=== PATIENT | male | born 1935 | race Caucasian/White ===

== ENCOUNTER 2019-01-22 00:04 | Inpatient (IN) | payer MEDICARE, MEDICAID ==
[~2019-01-22] VITALS: Ht 172.7 cm; Wt 112.3 kg
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
--- NOTE | 2019-01-22 00:25 | EKG ---
[address] [address] Test Date: 2019-01-22 Test Time: 00:24:01 Pat Name: SHERMAN MARTINEZ Department: Room: Gender: M Bistro Attendant: : 1935 Requested By: RAZIA BAKER Order Number: [id number] Reading MD: Measurements Intervals [place] Rate: 89 P: -149 MD: 182 QRS: -49 QRSD: 132 T: 21 QT: 396 QTc: 489 Interpretive Statements SINUS RHYTHM ABNORMAL LEFT AXIS DEVIATION LEFT ANTERIOR FASCICULAR BLOCK RIGHT BUNDLE BRANCH BLOCK BIFASCICULAR BLOCK QRS(T) CONTOUR ABNORMALITY CONSIDER ANTEROSEPTAL MYOCARDIAL DAMAGE ABNORMAL ECG RI6.01 No previous ECG available for comparison
[2019-01-22] MEDS ORDERED: IV RINGERS SOLUTION,LACTATED 1,000 ML IV SCH (00:30)
[2019-01-22 00:36] LABS: BASO # 0.1 x10^3/uL (0.0-0.2); BASO % 1 % (0-3); EOS # 0.4 x10^3/uL (0.0-0.7); EOS % 3 % (0-3); HEMATOCRIT 37.1 % (39.0-53.0); HEMOGLOBIN 12.5 g/dL (13.0-17.5); LYMPH # 3.9 x10^3/uL (1.0-4.8); LYMPH % 29 % (24-48); MEAN CORPUSCULAR HEMOGLOBIN 31 pg (25-35); MEAN CORPUSCULAR HGB CONC 34 g/dL (31-37); MEAN CORPUSCULAR VOLUME 92 fL (79-100); MONO # 1.1 x10^3/uL (0.0-1.1); MONO % 8 % (0-9); NEUT # 7.9 x10^3uL (1.8-7.7); NEUT % 59 % (31-73); PLATELET COUNT 359 x10^3/uL (140-400); RED BLOOD COUNT 4.02 x10^6/uL (4.30-5.70); WHITE BLOOD COUNT 13.3 x10^3/uL (4.0-11.0)
[2019-01-22 00:42] LABS: CALCIUM 8.7 mg/dL (8.5-10.1); CREATININE 1.4 mg/dL (0.7-1.3); GFR 48.4
[2019-01-22 00:54] LABS: ALBUMIN 3.5 g/dL (3.4-5.0); DIRECT BILIRUBIN 0.1 mg/dL (0.0-0.2); MAGNESIUM 1.8 mg/dL (1.8-2.4); TOTAL BILIRUBIN 0.3 mg/dL (0.2-1.0); TOTAL PROTEIN 7.8 g/dL (6.4-8.2)
[2019-01-22 01:32] LABS: SEDIMENTATION RATE 50 (0-15)
--- NOTE | 2019-01-22 02:03 | RAD ---
CT HEAD AND CERVICAL SPINE WO Date: 01/22/2019 12:15 AM Clinical Indication: Altered mental status, confusion, neck stiffness Comparison: None. Technique: 5 mm axial tomographic images were obtained of the head without contrast. These were viewed on brain and bone windows. Noncontrast CT of the cervical spine was performed. Sagittal and coronal reformats were performed and evaluated. One or more of the following dose reduction techniques were utilized: Automated exposure control (AEC), Adjustment of mA and/or kV according to patient size, Use of iterative reconstruction technique such as ASiR, CT scan done according to ALARA and image gently/image wisely HEAD FINDINGS: Motion artifact degrades image quality. Mild generalized cerebral and cerebellar volume loss. Mild nonspecific periventricular hypoattenuation, most commonly seen with chronic small vessel ischemic disease. No intra- or extra-axial mass or fluid collection. No acute hemorrhage. The ventricles are normal in size, shape, and morphology. The huang-white matter junction is normal. The basilar cisterns are patent. Partial opacification of the maxillary, ethmoid, and sphenoid sinuses. The visualized portions of the orbits and globes are normal. The mastoid air cells are clear. No aggressive osseous lesion or fracture. CERVICAL SPINE FINDINGS: The cervical spine is normally aligned. No acute fracture. No aggressive lytic or blastic osseous lesions. Moderate multilevel degenerative disc space height loss. Multilevel mild spinal canal stenosis secondary to disc protrusions and marginal osteophytes. Multilevel mild and moderate neuroforaminal narrowing secondary to uncovertebral arthrosis. Multilevel mild and moderate facet arthrosis. The thyroid gland is normal. No cervical lymphadenopathy. Bilateral carotid atherosclerosis. The visualized aerodigestive tract is normal. The visualized portions of the lungs are clear. IMPRESSION: 1. No acute intracranial process. 2. No acute cervical spine fracture. Electronically signed by: Flakito Church MD (01/22/2019 2:00 AM) [facility]
[2019-01-22 03:05] LABS: BARBITURATES NEG (NEG); BENZODIAZEPINES NEG (NEG); CANNABINOIDS NEG (NEG); COCAINE NEG (NEG); METHADONE NEG (NEG); OPIATES NEG (NEG); PHENCYCLIDINE NEG (NEG)
[2019-01-22 03:17] LABS: BACTERIA,URINE 0 /HPF (0-FEW); BILIRUBIN,URINE NEG (NEG); CLARITY,URINE CLEAR; COLOR,URINE YELLOW; GLUCOSE,URINE 100 mg/dL (NEG); NITRITE,URINE NEG (NEG); RBC,URINE 0 /HPF (0-2); SQUAMOUS EPITHELIAL CELL,UR OCC /LPF; UROBILINOGEN,URINE 0.2 mg/dL (0.2 mg/dL); WBC,URINE OCC /HPF (0-4)
[2019-01-22 03:30] LABS: AMPHETAMINE/METHAMPHETAMINE NEG (NEG)
[2019-01-22] MEDS ORDERED: diphenhydrAMINE HCL 25 MG CAPSULE PO ONE (03:45)
[2019-01-22] MEDS ORDERED: LORazepam 1 MG TABLET PO ONE (03:45)
[2019-01-22] MEDS ORDERED: OLANZapine 2.5 MG TABLET PO ONE (03:45)
[2019-01-22] MEDS ORDERED: cefTRIAXone SODIUM 1 GM VIAL ONE (03:46)
[2019-01-22] MEDS ORDERED: IV NORMAL SALINE 50ML 50 ML ONE (03:46)
[2019-01-22] MEDS ORDERED: ONDANSETRON PF 4 MG/2 ML VIAL. IV PRN ×2 (04:00→12:15)
--- NOTE | 2019-01-22 04:49 | RAD ---
CHEST AP ONLY INDICATION: Dyspnea, congestion, COPD. COMPARISON STUDY: None. FINDINGS: Lungs: Normal lung volume. Mild perihilar and basilar opacities. . Pleura: No pleural effusion or pneumothorax. Heart and Mediastinum: Cardiomegaly. Tortuous atherosclerotic aorta. IMPRESSION: Mild perihilar and basilar opacities, which could represent subsegmental atelectasis and/or interstitial edema. Electronically signed by: Flakito Church MD (01/22/2019 4:46 AM) [facility]
[2019-01-22] MEDS: IPRATRPIUM/ALBUTEROL 0.5/2.5MG 3 ML NEBU. NEB SCH ×4 (08:00→21:29)
[2019-01-22] MEDS ORDERED: GUAI473L15 PO (10:12)
[2019-01-22] MEDS ORDERED: CYAN100072 PO (10:12)
[2019-01-22] MEDS ORDERED: MELA3TAB56 PO (10:12)
[2019-01-22] MEDS ORDERED: DIPH28.33 TP (10:12)
[2019-01-22] MEDS ORDERED: SPIR50TA PO (10:12)
[2019-01-22] MEDS ORDERED: HYDR50CA2 PO (10:12)
[2019-01-22] MEDS ORDERED: CICL90CR3 TP (10:12)
[2019-01-22] MEDS ORDERED: ASPI-630 PO (10:12)
[2019-01-22] MEDS ORDERED: LORA10TA3 PO (10:12)
[2019-01-22] MEDS ORDERED: VALS320T2 PO (10:12)
[2019-01-22] MEDS ORDERED: FURO-68 PO (10:12)
[2019-01-22] MEDS ORDERED: INSU100V13 SQ (10:26)
[2019-01-22] MEDS ORDERED: POTA10TA12 PO (10:26)
[2019-01-22] MEDS ORDERED: OLAN5TAB3 PO (10:26)
[2019-01-22] MEDS ORDERED: INSU100V SQ (10:26)
[2019-01-22] MEDS ORDERED: MAGN400O7 PO (10:26)
[2019-01-22] MEDS ORDERED: GUAI100L34 PO (10:26)
[2019-01-22] MEDS ORDERED: ACET325T9 PO (10:26)
[2019-01-22] MEDS ORDERED: MULT-505 PO (10:26)
[2019-01-22] MEDS ORDERED: METO-247 PO (10:26)
[2019-01-22] MEDS ORDERED: INSU100C4 SQ (10:26)
[2019-01-22] MEDS ORDERED: NYST15PO9 TP (10:26)
[2019-01-22 10:44] VITALS: BP 126/54
[2019-01-22] MEDS ORDERED: ACETAMINOPHEN 325 MG TABLET PO PRN (12:30)
[2019-01-22] MEDS ORDERED: DEXTROSE 50% 25 GM / 50ML DISP.SYRIN. IV PRN (12:45)
[2019-01-22] MEDS: hydrOXYzine PAMOATE 25 MG CAPSULE PO SCH ×2 (15:00→21:58)
[2019-01-22 16:08] VITALS: BP 157/63
[2019-01-22] MEDS ORDERED: INSULIN ASPART 16 UNIT SQ SCH (16:30)
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
[2019-01-22] MEDS: INSULIN LISPRO 300 UNITS/3 ML VIAL. SQ SCH ×2 (17:00)
[2019-01-22 20:10] VITALS: BP 169/80
[2019-01-22] MEDS ORDERED: OLANZapine 5 MG TABLET PO SCH (21:00)
[2019-01-22] MEDS ORDERED: MELATONIN 3 MG TABLET PO SCH (21:00)
[2019-01-22] MEDS ORDERED: INSULIN DETEMIR 35 UNIT SQ SCH (21:00)
[2019-01-22] MEDS: LACTOBACILLUS RHAMNOSUS GG 1 CAPSULE. PO SCH (21:55)
[2019-01-22] MEDS: NYSTATIN TOPICAL POWDER 15GM BOTTLE. TP SCH (21:55)
[2019-01-22] MEDS: INSULIN GLARGINE SYRINGE. SQ SCH (22:03)
[2019-01-22 22:33] VITALS: BP 160/73
--- NOTE | 2019-01-22 23:22 | PDOC ---
Exam Note: Rene Note: Please also refer to the separate dictated note~for this date of service dictated separately.~Patient seen individually. Discussed the patient with Nursing staff reviewed the chart.~Reviewed interim history and current functioning. Reviewed vital signs,~Labs/ Radiology~and current medications noted below. Continue current treatment with the changes noted in the dictated addendum note Assessment: Vital Signs/I&O: Vital Signs Date Time Temp Pulse Resp B/P (MAP) Pulse Ox O2 Delivery O2 Flow Rate FiO2 01/22/19 22:33 97.5 73 20 160/73 (102) 93 Room Air I & O 01/21/19 01/21/19 01/22/19 15:00 23:00 07:00 Intake Total 50 ml Balance 50 ml Labs: Laboratory Tests Test 01/22/19 00:16 01/22/19 02:30 01/22/19 12:23 01/22/19 16:40 White Blood Count 13.3 x10^3/uL (4.0-11.0) H Red Blood Count 4.02 x10^6/uL (4.30-5.70) L Hemoglobin 12.5 g/dL (13.0-17.5) L Hematocrit 37.1 % (39.0-53.0) L Mean Corpuscular Volume 92 fL (79-100) Mean Corpuscular Hemoglobin 31 pg (25-35) Mean Corpuscular Hemoglobin Concent 34 g/dL (31-37) Red Cell Distribution Width 13.0 % (11.5-14.5) Platelet Count 359 x10^3/uL (140-400) Neutrophils (%) (Auto) 59 % (31-73) Lymphocytes (%) (Auto) 29 % (24-48) Monocytes (%) (Auto) 8 % (0-9) Eosinophils (%) (Auto) 3 % (0-3) Basophils (%) (Auto) 1 % (0-3) Neutrophils # (Auto) 7.9 x10^3uL (1.8-7.7) H Lymphocytes # (Auto) 3.9 x10^3/uL (1.0-4.8) Monocytes # (Auto) 1.1 x10^3/uL (0.0-1.1) Eosinophils # (Auto) 0.4 x10^3/uL (0.0-0.7) Basophils # (Auto) 0.1 x10^3/uL (0.0-0.2) Erythrocyte Sedimentation Rate 50 (0-15) H Prothrombin Time 9.9 SEC (9.4-11.4) Prothrombin Time INR 1.0 (0.9-1.1) Activated Partial Thromboplast Time 25 SEC (23-33) Sodium Level 135 mmol/L (136-145) L Potassium Level 4.0 mmol/L (3.5-5.1) Chloride Level 100 mmol/L (98-107) Carbon Dioxide Level 23 mmol/L (21-32) Anion Gap 12 (6-14) Blood Urea Nitrogen 22 mg/dL (8-26) Creatinine 1.4 mg/dL (0.7-1.3) H Estimated GFR (Cockcroft-Gault) 48.4 Glucose Level 168 mg/dL (70-99) H Calcium Level 8.7 mg/dL (8.5-10.1) Magnesium Level 1.8 mg/dL (1.8-2.4) Total Bilirubin 0.3 mg/dL (0.2-1.0) Direct Bilirubin 0.1 mg/dL (0.0-0.2) Aspartate Amino Transferase (AST) 14 U/L (15-37) L Alanine Aminotransferase (ALT) 19 U/L (16-63) Alkaline Phosphatase 100 U/L (46-116) Creatine Kinase 75 U/L (39-308) Troponin I Quantitative < 0.017 ng/mL (0-0.055) MM-Hqi-H-Type Natriuretic Peptide 298 pg/mL (0-449) Total Protein 7.8 g/dL (6.4-8.2) Albumin 3.5 g/dL (3.4-5.0) Lipase 95 U/L (73-393) Thyroid Stimulating Hormone (TSH) 6.482 uIU/mL (0.358-3.740) Treponema pallidum Antibody Nonreactive (Nonreactive) Urine Collection Type Unknown Urine Color Yellow Urine Clarity Clear Urine pH 5.5 Urine Specific [place] 1.015 Urine Protein Neg (NEG-TRACE) Urine Glucose (UA) 100 mg/dL (NEG) Urine Ketones (Stick) Neg mg/dL (NEG) Urine Blood Neg (NEG) Urine Nitrite Neg (NEG) Urine Bilirubin Neg (NEG) Urine Urobilinogen Dipstick 0.2 mg/dL (0.2 mg/dL) Urine Leukocyte Esterase Neg (NEG) Urine RBC 0 /HPF (0-2) Urine WBC Occ /HPF (0-4) Urine Squamous Epithelial Cells Occ /LPF Urine Bacteria 0 /HPF (0-FEW) Urine Opiates Screen Neg (NEG) Urine Methadone Screen Neg (NEG) Urine Barbiturates Neg (NEG) Urine Phencyclidine Screen Neg (NEG) Urine Amphetamine/Methamphetamine Neg (NEG) Urine Benzodiazepines Screen Neg (NEG) Urine Cocaine Screen Neg (NEG) Urine Cannabinoids Screen Neg (NEG) Urine Ethyl Alcohol Neg (NEG) Glucose (Fingerstick) 156 mg/dL (70-99) H 169 mg/dL (70-99) H Test 01/22/19 20:37 Glucose (Fingerstick) 136 mg/dL (70-99) H Current Medications: Meds: Current Medications Medications (Trade) Dose Ordered Sig/Joanna Route PRN Reason Start Time Stop Time Status Last Admin Dose Admin Lactated Ringer's 1,000 ml @ 100 mls/hr Q10H IV 01/22/19 00:30 01/22/19 10:29 DC 01/22/19 04:01 Ceftriaxone Sodium 1 gm/ Sodium Chloride 50 ml @ 100 mls/hr 1X ONCE IV 01/22/19 03:30 01/22/19 03:59 DC 01/22/19 04:02 Olanzapine (ZyPREXA) 5 mg 1X ONCE PO 01/22/19 03:45 01/22/19 03:46 DC 01/22/19 04:02 Diphenhydramine HCl (Benadryl) 50 mg 1X ONCE PO 01/22/19 03:45 01/22/19 03:46 DC 01/22/19 04:02 Lorazepam (Ativan) 1 mg 1X ONCE PO 01/22/19 03:45 01/22/19 03:46 DC 01/22/19 04:02 Albuterol/ Ipratropium (Duoneb) 3 ml RTQID NEB 01/22/19 08:00 01/23/19 07:59 01/22/19 21:29 Lactobacillus Rhamnosus (Culturelle) 1 cap BID PO 01/22/19 21:00 01/22/19 21:55 Melatonin (Melatonin) 6 mg QHS PO 01/22/19 21:00 01/22/19 21:56 Nystatin (Nystop) 1 pau BID TP 01/22/19 21:00 01/22/19 21:55 Olanzapine (ZyPREXA) 5 mg QHS PO 01/22/19 21:00 01/22/19 21:58 Hydroxyzine Pamoate (Vistaril) 50 mg TID PO 01/22/19 14:00 01/22/19 21:58 Insulin Glargine (Lantus Syringe) 35 unit BID SQ 01/22/19 21:00 01/22/19 22:03 I have reviewed the current psychotropics carefully including drug interactions. Risk benefit ratio favors no change other than as noted in my dictated progress note. Diagnosis: Problems: (1) Leukocytosis (2) Altered mental status, unspecified NICHOLE PEÑA MD Jan 22, 2019 23:21
[2019-01-23] MEDS: IPRATRPIUM/ALBUTEROL 0.5/2.5MG 3 ML NEBU. NEB SCH (05:21)
[2019-01-23 05:42] VITALS: BP 161/71
[2019-01-23 06:26] LABS: BASO # 0.1 x10^3/uL (0.0-0.2); BASO % 1 % (0-3); EOS # 0.3 x10^3/uL (0.0-0.7); EOS % 3 % (0-3); HEMATOCRIT 34.5 % (39.0-53.0); HEMOGLOBIN 11.6 g/dL (13.0-17.5); LYMPH # 2.9 x10^3/uL (1.0-4.8); LYMPH % 36 % (24-48); MEAN CORPUSCULAR HEMOGLOBIN 31 pg (25-35); MEAN CORPUSCULAR HGB CONC 34 g/dL (31-37); MEAN CORPUSCULAR VOLUME 93 fL (79-100); MONO # 0.7 x10^3/uL (0.0-1.1); MONO % 9 % (0-9); NEUT # 4.1 x10^3uL (1.8-7.7); NEUT % 51 % (31-73); PLATELET COUNT 272 x10^3/uL (140-400); RED BLOOD COUNT 3.73 x10^6/uL (4.30-5.70); RED CELL DISTRIBUTION WIDTH 13.1 % (11.5-14.5)
[2019-01-23 06:51] LABS: ALBUMIN/GLOBULIN RATIO 0.8 (1.0-1.7); CALCIUM 8.5 mg/dL (8.5-10.1); GFR 71.4; TOTAL BILIRUBIN 0.3 mg/dL (0.2-1.0); TOTAL PROTEIN 6.9 g/dL (6.4-8.2)
[2019-01-23] MEDS: INSULIN LISPRO 300 UNITS/3 ML VIAL. SQ SCH ×4 (08:00→12:09)
[2019-01-23] MEDS: LACTOBACILLUS RHAMNOSUS GG 1 CAPSULE. PO SCH (08:16)
[2019-01-23] MEDS: hydrOXYzine PAMOATE 25 MG CAPSULE PO SCH ×2 (08:17→13:26)
[2019-01-23] MEDS: NYSTATIN TOPICAL POWDER 15GM BOTTLE. TP SCH (08:18)
[2019-01-23] MEDS ORDERED: CETIRIZINE HCL 10 MG TABLET PO SCH (09:00)
[2019-01-23] MEDS ORDERED: POTASSIUM CHLORIDE 10 MEQ TABLET.ER. PO SCH (09:00)
[2019-01-23] MEDS ORDERED: CYANOCOBALAMIN (VITAMIN B-12) 1,000 MCG TABLET. PO SCH (09:00)
[2019-01-23] MEDS ORDERED: FUROSEMIDE 40 MG TABLET PO SCH (09:00)
[2019-01-23] MEDS ORDERED: MULTIVITAMIN with MINERAL TABLET. PO SCH (09:00)
[2019-01-23] MEDS ORDERED: METOPROLOL SUCC 24HR ER 50 MG TAB.ER.24H. PO SCH (09:00)
[2019-01-23] MEDS ORDERED: ASPIRIN 81 MG TAB.CHEW PO SCH (09:00)
[2019-01-23] MEDS ORDERED: SPIRONOLACTONE 25 MG TABLET PO SCH (09:00)
[2019-01-23] MEDS ORDERED: LOSARTAN 50 MG TABLET. PO SCH (09:00)
[2019-01-23] MEDS: INSULIN GLARGINE SYRINGE. SQ SCH (09:46)
[2019-01-23 11:33] VITALS: BP 148/67
[2019-01-23] MEDS ORDERED: AZIT1PAC PO (16:08)
[2019-01-23] MEDS ORDERED: CEFD300C PO (16:08)
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
[2019-01-23] MEDS ORDERED: INSU100V31 SQ (18:39)
[2019-01-23] MEDS ORDERED: [UNRECOGNIZED DRUG - CODE] PO (19:41)
[2019-01-23] MEDS ORDERED: LIDOCAINE VISCOUS 2% PO (19:41)
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
== END 2019-01-23 16:19 | disposition short-term general hospital (02) | DRG 177 ==
LOC: ER 00:04 → 1 SOUTH 04:00
PROVIDERS: ADMIT Internal Medicine; ATTEND Internal Medicine
DX: J15.6 Pneumonia due to other Gram-negative bacteria (principal); N17.0 Acute kidney failure with tubular necrosis; E87.1 Hypo-osmolality and hyponatremia; F01.51 Vascular dementia, unspecified severity, with behavioral disturbance; F02.81 Dementia in other diseases classified elsewhere, unspecified severity, with behavioral disturbance; J44.0 Chronic obstructive pulmonary disease with (acute) lower respiratory infection; R65.10 Systemic inflammatory response syndrome (SIRS) of non-infectious origin without acute organ dysfunction; D64.9 Anemia, unspecified; E11.9 Type 2 diabetes mellitus without complications; E78.00 Pure hypercholesterolemia, unspecified; E78.5 Hyperlipidemia, unspecified; F32.9 Major depressive disorder, single episode, unspecified; F41.9 Anxiety disorder, unspecified; F63.9 Impulse disorder, unspecified; G30.9 Alzheimer's disease, unspecified; I11.0 Hypertensive heart disease with heart failure; I50.9 Heart failure, unspecified; K59.09 Other constipation; E66.01 Morbid (severe) obesity due to excess calories; M19.90 Unspecified osteoarthritis, unspecified site
CPT/HCPCS: 36415; 70450; 71045; 72125; 80048; 80053; 80076; 80307; 81001; 82550; 82947; 83690; 83735; 83880; 84443; 84484; 85025; 85610; 85651; 85730; 86592; 87040; 93005; 94640; 96365; J0696; J1815; J7120; J7620; Q0163; Q0177; 99285-25

== ENCOUNTER 2019-01-23 16:31 | Inpatient (IN) | payer MEDICARE, MEDICAID ==
[~2019-01-23] VITALS: Ht 172.7 cm; Wt 100.8 kg
[~2019-01-23 16:31] MED LIST: ACET325T9 PO; ASPI-630 PO; AZIT1PAC PO; CEFD300C PO; CICL90CR3 TP; CYAN100072 PO; DIPH28.33 TP; FURO-68 PO; GUAI100L34 PO; GUAI473L15 PO; HYDR50CA2 PO; INSU100C4 SQ; INSU100V SQ; INSU100V13 SQ; LORA10TA3 PO; MAGN400O7 PO; MELA3TAB56 PO; METO-247 PO; MULT-505 PO; NYST15PO9 TP; OLAN5TAB3 PO; POTA10TA12 PO; SPIR50TA PO; VALS320T2 PO
[2019-01-23] MEDS ORDERED: INSU100V31 SQ (18:39)
[2019-01-23] MEDS ORDERED: LIDOCAINE VISCOUS 2% PO (19:41)
[2019-01-23] MEDS ORDERED: [UNRECOGNIZED DRUG - CODE] PO (19:41)
[2019-01-23] MEDS ORDERED: DEXTROMETHORPHAN HBR PO PRN (19:45)
[2019-01-23] MEDS ORDERED: guaiFENesin 300 MG/15 ML LIQUID PO PRN (19:45)
[2019-01-23] MEDS ORDERED: MAGNESIUM HYDROXIDE 2,400 MG/30 ML ORAL.SUSP. PO PRN ×2 (19:45→20:00)
[2019-01-23] MEDS ORDERED: ACETAMINOPHEN 325 MG TABLET PO PRN ×2 (19:45→20:00)
[2019-01-23] MEDS ORDERED: MAG HYDROX/AL HYDROX/SIMETH 30 ML ORAL.SUSP PO PRN (20:00)
[2019-01-23] MEDS ORDERED: METHYL SALICYLATE/MENTHOL TOPICAL OINTMENT 57GM TUBE. TP PRN (20:00)
--- NOTE | 2019-01-23 20:46 | PDOC ---
Exam Note: Rene Note: Please also refer to the separate dictated note~for this date of service dictated separately. Discussed the patient with Nursing staff reviewed the chart.~Reviewed interim history and current functioning. Reviewed vital signs,~Labs/ Radiology~and current medications noted below. Continue current treatment with the changes noted in the dictated addendum note Assessment: Labs: Laboratory Tests Test 01/23/19 17:16 01/23/19 18:59 Glucose (Fingerstick) 166 mg/dL (70-99) H 255 mg/dL (70-99) H Current Medications: I have reviewed the current psychotropics carefully including drug interactions. Risk benefit ratio favors no change other than as noted in my dictated progress note. Diagnosis: Problems: (1) Anxiety disorder (2) Acute psychosis (3) Dementia in Alzheimer's disease with delusions (4) Dementia in Alzheimer's disease with depression (5) Dementia, vascular, with delusions (6) Dementia, vascular, with depression (7) Impulse control disorder NICHOLE PEÑA MD Jan 23, 2019 20:46
[2019-01-23] MEDS: CICLOPIROX 0.77% TOPICAL CREAM 15GM TUBE. TP SCH (21:00)
[2019-01-23] MEDS: NON FORMULARY ITEM (Insulin Aspart (Novolog) 0 UNIT) SQ SCH (21:00)
[2019-01-23] MEDS ORDERED: LIDOCAINE 2% VISCOUS 15 ML SOLUTION. SWSW PRN (21:00)
[2019-01-23] MEDS: OLANZapine 5 MG TABLET PO SCH (21:08)
[2019-01-23] MEDS: MELATONIN 3 MG TABLET PO SCH (21:08)
[2019-01-23] MEDS: hydrOXYzine PAMOATE 25 MG CAPSULE PO SCH (21:08)
[2019-01-23] MEDS: CEFDINIR 300 MG CAPSULE PO SCH (21:08)
[2019-01-23] MEDS: NYSTATIN TOPICAL POWDER 15GM BOTTLE. TP SCH (21:09)
[2019-01-23] MEDS: diphenhydrAMINE/ZINC 2%/0.1% 28GM TUBE. TP SCH (21:15)
[2019-01-23] MEDS: INSULIN GLARGINE SYRINGE. SQ SCH (22:02)
[2019-01-24 05:02] VITALS: BP 191/83
[2019-01-24 06:05] VITALS: BP 157/70
[2019-01-24] MEDS ORDERED: AZITHROMYCIN 250 MG TABLET. PO ONE (09:00)
[2019-01-24] MEDS: NON FORMULARY ITEM (Insulin Aspart (Novolog) 0 UNIT) SQ SCH ×2 (09:00→13:00)
[2019-01-24] MEDS: SPIRONOLACTONE 25 MG TABLET PO SCH (09:06)
[2019-01-24] MEDS: ASPIRIN 81 MG TAB.CHEW PO SCH (09:06)
[2019-01-24] MEDS: POTASSIUM CHLORIDE 10 MEQ TABLET.ER. PO SCH (09:07)
[2019-01-24] MEDS: LOSARTAN 50 MG TABLET. PO SCH (09:07)
[2019-01-24] MEDS: CYANOCOBALAMIN (VITAMIN B-12) 1,000 MCG TABLET. PO SCH (09:08)
[2019-01-24] MEDS: FUROSEMIDE 40 MG TABLET PO SCH (09:08)
[2019-01-24] MEDS: CETIRIZINE HCL 10 MG TABLET PO SCH (09:08)
[2019-01-24] MEDS: hydrOXYzine PAMOATE 25 MG CAPSULE PO SCH ×3 (09:08→20:49)
[2019-01-24] MEDS: NYSTATIN TOPICAL POWDER 15GM BOTTLE. TP SCH ×2 (09:09→20:49)
[2019-01-24] MEDS: diphenhydrAMINE/ZINC 2%/0.1% 28GM TUBE. TP SCH ×3 (09:09→20:48)
[2019-01-24] MEDS: INSULIN LISPRO 300 UNITS/3 ML VIAL. SQ SCH ×3 (09:10→17:34)
[2019-01-24] MEDS: INSULIN GLARGINE SYRINGE. SQ SCH ×2 (09:12→20:51)
[2019-01-24] MEDS: METOPROLOL SUCC 24HR ER 50 MG TAB.ER.24H. PO SCH (09:15)
[2019-01-24] MEDS: CEFDINIR 300 MG CAPSULE PO SCH ×2 (09:15→20:49)
[2019-01-24] MEDS: MULTIVITAMIN with MINERAL TABLET. PO SCH (09:15)
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
[2019-01-24 13:10] LABS: THYROID STIM HORMONE (TSH) 5.18 uIU/mL (0.358-3.740)
[2019-01-24 16:15] VITALS: BP 171/76
[2019-01-24] MEDS: DIVALPROEX 125 MG CAP.SPRINK PO SCH (17:30)
[2019-01-24] MEDS: CHOLECALCIFEROL (VITAMIN D3) 50,000 UNIT CAPSULE PO SCH (17:30)
[2019-01-24 18:06] LABS: THYROXINE 6.6 ug/dL (4.5-12.0)
[2019-01-24] MEDS: CICLOPIROX 0.77% TOPICAL CREAM 15GM TUBE. TP SCH (20:48)
[2019-01-24] MEDS: MELATONIN 3 MG TABLET PO SCH (20:49)
[2019-01-24] MEDS: OLANZapine 5 MG TABLET PO SCH (20:49)
--- NOTE | 2019-01-24 21:36 | PDOC ---
Exam Note: Rene Note: Please also refer to the separate dictated note~for this date of service dictated separately.~Patient seen individually. Discussed the patient with Nursing staff reviewed the chart.~Reviewed interim history and current functioning. Reviewed vital signs,~Labs/ Radiology~and current medications noted below. Continue current treatment with the changes noted in the dictated addendum note Assessment: Vital Signs/I&O: Vital Signs Date Time Temp Pulse Resp B/P (MAP) Pulse Ox O2 Delivery O2 Flow Rate FiO2 01/24/19 16:15 98.1 68 20 171/76 (107) 95 Room Air I & O 01/23/19 01/23/19 01/24/19 15:00 23:00 07:00 Intake Total 240 ml Balance 240 ml Labs: Laboratory Tests Test 01/24/19 07:34 01/24/19 11:45 01/24/19 16:40 01/24/19 19:17 Glucose (Fingerstick) 113 mg/dL (70-99) H 194 mg/dL (70-99) H 143 mg/dL (70-99) H 159 mg/dL (70-99) H Current Medications: Meds: Current Medications Medications (Trade) Dose Ordered Sig/Joanna Route PRN Reason Start Time Stop Time Status Last Admin Dose Admin Aspirin (Children'S Aspirin) 81 mg DAILY PO 01/24/19 09:00 01/24/19 09:06 Cyanocobalamin (Vitamin B-12) 1,000 mcg DAILY PO 01/24/19 09:00 01/24/19 09:08 Furosemide (Lasix) 40 mg DAILY PO 01/24/19 09:00 01/24/19 09:08 Potassium Chloride (Klor-Con) 10 meq DAILY PO 01/24/19 09:00 01/24/19 09:07 Insulin Human Lispro (HumaLOG) 16 units TIDAC SQ 01/24/19 07:30 01/24/19 17:34 Cetirizine HCl (ZyrTEC) 10 mg DAILY PO 01/24/19 09:00 01/24/19 09:08 Metoprolol Succinate (Toprol Xl) 100 mg DAILY PO 01/24/19 09:00 01/24/19 09:15 Multivitamins/ Calcium (Thera-M Plus) 1 tab DAILY PO 01/24/19 09:00 01/24/19 09:15 Spironolactone (Aldactone) 50 mg DAILY PO 01/24/19 09:00 01/24/19 09:06 Losartan Potassium (Cozaar) 100 mg DAILY PO 01/24/19 09:00 01/24/19 09:07 Azithromycin (Zithromax) 500 mg 1X ONCE PO 01/24/19 09:00 01/24/19 09:01 DC 01/24/19 09:08 Divalproex Sodium (Depakote Sprinkles) 125 mg BIDWMEALS PO 01/24/19 17:00 01/24/19 17:30 Vitamin D (Vitamin D3) 50,000 unit WEEKLY PO 01/24/19 16:45 01/24/19 17:30 I have reviewed the current psychotropics carefully including drug interactions. Risk benefit ratio favors no change other than as noted in my dictated progress note. Diagnosis: Problems: (1) Anxiety disorder (2) Acute psychosis (3) Dementia in Alzheimer's disease with delusions (4) Dementia in Alzheimer's disease with depression (5) Dementia, vascular, with delusions (6) Dementia, vascular, with depression (7) Impulse control disorder NICHOLE PEÑA MD Jan 24, 2019 21:36
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
[2019-01-25 00:06] LABS: HEMOGLOBIN A1C 7.8 % (4.8-5.6)
[2019-01-25 04:56] VITALS: BP 175/72
[2019-01-25 07:27] LABS: HEMOGLOBIN 12.7 g/dL (13.0-17.5); RED BLOOD COUNT 4.06 x10^6/uL (4.30-5.70); RED CELL DISTRIBUTION WIDTH 12.9 % (11.5-14.5); WHITE BLOOD COUNT 13.8 x10^3/uL (4.0-11.0)
[2019-01-25 07:32] LABS: ALBUMIN 3.3 g/dL (3.4-5.0); ALBUMIN/GLOBULIN RATIO 0.8 (1.0-1.7); CALCIUM 8.5 mg/dL (8.5-10.1); CREATININE 1.2 mg/dL (0.7-1.3); GFR 57.8; TOTAL BILIRUBIN 0.4 mg/dL (0.2-1.0); TOTAL PROTEIN 7.5 g/dL (6.4-8.2)
[2019-01-25] MEDS: INSULIN LISPRO 300 UNITS/3 ML VIAL. SQ SCH ×3 (08:52→17:21)
[2019-01-25] MEDS: INSULIN GLARGINE SYRINGE. SQ SCH ×2 (08:53→20:26)
[2019-01-25] MEDS: DIVALPROEX 125 MG CAP.SPRINK PO SCH ×2 (08:54→17:21)
[2019-01-25] MEDS: SPIRONOLACTONE 25 MG TABLET PO SCH (08:54)
[2019-01-25] MEDS: LOSARTAN 50 MG TABLET. PO SCH (08:55)
[2019-01-25] MEDS: ASPIRIN 81 MG TAB.CHEW PO SCH (08:55)
[2019-01-25] MEDS: METOPROLOL SUCC 24HR ER 50 MG TAB.ER.24H. PO SCH (08:56)
[2019-01-25] MEDS: hydrOXYzine PAMOATE 25 MG CAPSULE PO SCH ×3 (08:56→20:23)
[2019-01-25] MEDS: FUROSEMIDE 40 MG TABLET PO SCH (08:56)
[2019-01-25] MEDS: POTASSIUM CHLORIDE 10 MEQ TABLET.ER. PO SCH (08:56)
[2019-01-25] MEDS: CEFDINIR 300 MG CAPSULE PO SCH ×2 (08:56→20:23)
[2019-01-25] MEDS: MULTIVITAMIN with MINERAL TABLET. PO SCH (08:56)
[2019-01-25] MEDS: CYANOCOBALAMIN (VITAMIN B-12) 1,000 MCG TABLET. PO SCH (08:57)
[2019-01-25] MEDS: CETIRIZINE HCL 10 MG TABLET PO SCH (08:57)
[2019-01-25] MEDS: AZITHROMYCIN 250 MG TABLET. PO SCH (08:58)
[2019-01-25] MEDS: LACTOBACILLUS RHAMNOSUS GG 1 CAPSULE. PO SCH ×2 (08:58→20:23)
[2019-01-25] MEDS: NYSTATIN TOPICAL POWDER 15GM BOTTLE. TP SCH ×2 (09:00→20:24)
[2019-01-25] MEDS: diphenhydrAMINE/ZINC 2%/0.1% 28GM TUBE. TP SCH ×3 (09:00→20:24)
[2019-01-25 16:12] VITALS: BP 130/72
[2019-01-25] MEDS: MELATONIN 3 MG TABLET PO SCH (20:22)
[2019-01-25] MEDS: OLANZapine 5 MG TABLET PO SCH (20:23)
[2019-01-25] MEDS: CICLOPIROX 0.77% TOPICAL CREAM 15GM TUBE. TP SCH (20:24)
--- NOTE | 2019-01-25 21:33 | PDOC ---
Exam Note: Rene Note: Please also refer to the separate dictated note~for this date of service dictated separately.~Patient seen individually. Discussed the patient with Nursing staff reviewed the chart.~Reviewed interim history and current functioning. Reviewed vital signs,~Labs/ Radiology~and current medications noted below. Continue current treatment with the changes noted in the dictated addendum note Assessment: Vital Signs/I&O: Vital Signs Date Time Temp Pulse Resp B/P (MAP) Pulse Ox O2 Delivery O2 Flow Rate FiO2 01/25/19 16:12 97.2 61 16 130/72 (91) 90 01/24/19 16:15 Room Air I & O 01/24/19 01/24/19 01/25/19 15:00 23:00 07:00 Intake Total 360 ml 480 ml Balance 360 ml 480 ml Labs: Laboratory Tests Test 01/25/19 07:05 01/25/19 07:25 01/25/19 11:24 01/25/19 16:06 White Blood Count 13.8 x10^3/uL (4.0-11.0) H Red Blood Count 4.06 x10^6/uL (4.30-5.70) L Hemoglobin 12.7 g/dL (13.0-17.5) L Hematocrit 37.0 % (39.0-53.0) L Mean Corpuscular Volume 91 fL (79-100) Mean Corpuscular Hemoglobin 31 pg (25-35) Mean Corpuscular Hemoglobin Concent 34 g/dL (31-37) Red Cell Distribution Width 12.9 % (11.5-14.5) Platelet Count 304 x10^3/uL (140-400) Sodium Level 136 mmol/L (136-145) Potassium Level 4.0 mmol/L (3.5-5.1) Chloride Level 100 mmol/L (98-107) Carbon Dioxide Level 26 mmol/L (21-32) Anion Gap 10 (6-14) Blood Urea Nitrogen 15 mg/dL (8-26) Creatinine 1.2 mg/dL (0.7-1.3) Estimated GFR (Cockcroft-Gault) 57.8 BUN/Creatinine Ratio 13 (6-20) Glucose Level 145 mg/dL (70-99) H Calcium Level 8.5 mg/dL (8.5-10.1) Total Bilirubin 0.4 mg/dL (0.2-1.0) Aspartate Amino Transferase (AST) 19 U/L (15-37) Alanine Aminotransferase (ALT) 21 U/L (16-63) Alkaline Phosphatase 100 U/L (46-116) Total Protein 7.5 g/dL (6.4-8.2) Albumin 3.3 g/dL (3.4-5.0) L Albumin/Globulin Ratio 0.8 (1.0-1.7) L Glucose (Fingerstick) 141 mg/dL (70-99) H 161 mg/dL (70-99) H 177 mg/dL (70-99) H Test 01/25/19 19:33 Glucose (Fingerstick) 129 mg/dL (70-99) H Current Medications: Meds: Current Medications Medications (Trade) Dose Ordered Sig/Joanna Route PRN Reason Start Time Stop Time Status Last Admin Dose Admin Azithromycin (Zithromax) 250 mg DAILY PO 01/25/19 09:00 01/28/19 23:50 01/25/19 08:58 Lactobacillus Rhamnosus (Culturelle) 1 cap BID PO 01/25/19 09:00 01/25/19 20:23 I have reviewed the current psychotropics carefully including drug interactions. Risk benefit ratio favors no change other than as noted in my dictated progress note. Diagnosis: Problems: (1) Anxiety disorder (2) Acute psychosis (3) Dementia in Alzheimer's disease with delusions (4) Dementia in Alzheimer's disease with depression (5) Dementia, vascular, with delusions (6) Dementia, vascular, with depression (7) Impulse control disorder NICHOLE PEÑA MD Jan 25, 2019 21:33
[2019-01-26 05:37] VITALS: BP 152/80
[2019-01-26] MEDS: INSULIN LISPRO 300 UNITS/3 ML VIAL. SQ SCH ×3 (08:42→17:21)
[2019-01-26] MEDS: INSULIN GLARGINE SYRINGE. SQ SCH ×2 (08:43→20:16)
[2019-01-26] MEDS: DIVALPROEX 125 MG CAP.SPRINK PO SCH ×2 (08:45→17:20)
[2019-01-26] MEDS: ASPIRIN 81 MG TAB.CHEW PO SCH (08:45)
[2019-01-26] MEDS: SPIRONOLACTONE 25 MG TABLET PO SCH (08:45)
[2019-01-26] MEDS: MULTIVITAMIN with MINERAL TABLET. PO SCH (08:46)
[2019-01-26] MEDS: CEFDINIR 300 MG CAPSULE PO SCH ×2 (08:46→20:16)
[2019-01-26] MEDS: CETIRIZINE HCL 10 MG TABLET PO SCH (08:46)
[2019-01-26] MEDS: POTASSIUM CHLORIDE 10 MEQ TABLET.ER. PO SCH (08:46)
[2019-01-26] MEDS: CYANOCOBALAMIN (VITAMIN B-12) 1,000 MCG TABLET. PO SCH (08:46)
[2019-01-26] MEDS: FUROSEMIDE 40 MG TABLET PO SCH (08:46)
[2019-01-26] MEDS: LACTOBACILLUS RHAMNOSUS GG 1 CAPSULE. PO SCH ×2 (08:46→20:16)
[2019-01-26] MEDS: AZITHROMYCIN 250 MG TABLET. PO SCH (08:46)
[2019-01-26] MEDS: METOPROLOL SUCC 24HR ER 50 MG TAB.ER.24H. PO SCH ×2 (09:00→13:15)
[2019-01-26] MEDS: diphenhydrAMINE/ZINC 2%/0.1% 28GM TUBE. TP SCH ×3 (09:00→20:17)
[2019-01-26] MEDS: NYSTATIN TOPICAL POWDER 15GM BOTTLE. TP SCH ×2 (09:00→20:17)
[2019-01-26] MEDS: LOSARTAN 50 MG TABLET. PO SCH (09:04)
[2019-01-26 15:38] VITALS: BP 172/79
[2019-01-26] MEDS: QUEtiapine 25 MG TABLET. PO SCH (20:16)
[2019-01-26] MEDS: MELATONIN 3 MG TABLET PO SCH (20:16)
[2019-01-26] MEDS: CICLOPIROX 0.77% TOPICAL CREAM 15GM TUBE. TP SCH (20:17)
--- NOTE | 2019-01-26 21:08 | PDOC ---
Exam Note: Rene Note: Please also refer to the separate dictated note~for this date of service dictated separately.~Patient seen individually. Discussed the patient with Nursing staff reviewed the chart.~Reviewed interim history and current functioning. Reviewed vital signs,~Labs/ Radiology~and current medications noted below. Continue current treatment with the changes noted in the dictated addendum note Assessment: Vital Signs/I&O: Vital Signs Date Time Temp Pulse Resp B/P (MAP) Pulse Ox O2 Delivery O2 Flow Rate FiO2 01/26/19 15:38 98.0 69 16 172/79 (110) 100 01/24/19 16:15 Room Air I & O 01/25/19 01/25/19 01/26/19 14:59 22:59 06:59 Intake Total 600 ml 240 ml 120 ml Balance 600 ml 240 ml 120 ml Labs: Laboratory Tests Test 01/26/19 07:28 01/26/19 11:20 01/26/19 16:54 01/26/19 19:16 Glucose (Fingerstick) 109 mg/dL (70-99) H 214 mg/dL (70-99) H 144 mg/dL (70-99) H 183 mg/dL (70-99) H Current Medications: Meds: Current Medications Medications (Trade) Dose Ordered Sig/Joanna Route PRN Reason Start Time Stop Time Status Last Admin Dose Admin Quetiapine Fumarate (SEROquel) 12.5 mg 0900,1300,2100 PO 01/26/19 21:00 01/26/19 20:16 I have reviewed the current psychotropics carefully including drug interactions. Risk benefit ratio favors no change other than as noted in my dictated progress note. Diagnosis: Problems: (1) Anxiety disorder (2) Acute psychosis (3) Dementia in Alzheimer's disease with delusions (4) Dementia in Alzheimer's disease with depression (5) Dementia, vascular, with delusions (6) Dementia, vascular, with depression (7) Impulse control disorder NICHOLE PEÑA MD Jan 26, 2019 21:08
[2019-01-27 05:31] VITALS: BP 163/76
--- NOTE | 2019-01-27 08:03 | PN ---
DATE: 01/24/2019 This late entry of 01/24 covers elements not covered in my initial note. SUBJECTIVE: I met with the patient on evening of 01/24. Overall, the patient remains somewhat anxious, restless, very confused. REVIEW OF SYSTEMS: No CV, , pulmonary, eye, ENT system symptoms on review. Reliability poor. MENTAL STATUS EXAMINATION: Oriented to himself. Insight, judgment, recent and remote memory, attention, concentration, fund of knowledge poor consistent with his diagnosis mentioned in my initial note. PLAN: Given his marked impulse control problems within the context of his dementia, major neurocognitive disorder, Alzheimer's, vascular with delusion, depression, we will go ahead and start Depakote Sprinkle 125 mg 9 a.m., 5:00 p.m. Check CBC, CMP, valproic acid level in 3 days. Rest unchanged for now. MAN ShawnBrian PEÑA MD DR: CLAUDIO/lilly JOB#: [id number] / [id number]
--- NOTE | 2019-01-27 08:09 | PN ---
DATE: 01/26/2019 PSYCHIATRIC PROGRESS NOTE This late entry 01/26/2019 covers elements not covered in my initial note. SUBJECTIVE: I met with the patient in the evening of 01/26/2019. The patient slept 6-1/2 hours previous night. He remains confused, little anxious, restless at times, refused insulin. A1c is elevated. I addressed this with him, but he is quite demented, unable to process this. REVIEW OF SYSTEMS: No CV, , pulmonary, eye, ENT system symptoms on review. Reliability poor. MENTAL STATUS EXAM: Oriented to himself. Insight, judgment, recent and remote memory, attention, concentration, fund of knowledge poor consistent with his diagnosis as mentioned in my initial note. PLAN: Change Zyprexa 5 mg at bedtime to Seroquel 12.5 mg 9 a.m., 1:00 p.m. and 9 p.m. Continue Depakote. Check labs, level adjust as indicated. Rest unchanged. MAN Ivone PEÑA MD DR: CLAUDIO/lilly JOB#: [id number] / [id number]
--- NOTE | 2019-01-27 08:15 | PN ---
DATE: 01/25/2019 PSYCHIATRIC PROGRESS NOTE This late entry 01/25/2019 covers the elements not covered in my initial note. SUBJECTIVE: I met with the patient in the evening of 01/25/2019. The patient slept 6 hours previous night. He remains confused. WBC 13.8. He remains on antibiotics with questionable pneumonia, defer to Dr. Soni. He is tolerating the initiation of Depakote, less impulsive. REVIEW OF SYSTEMS: No CV, , pulmonary, eye, ENT system symptoms on review. Reliability poor. MENTAL STATUS EXAM: Oriented to himself. Insight, judgment, recent and remote memory, attention, concentration and fund of knowledge are poor, consistent with his diagnosis mentioned in my initial note. PLAN: No change from initial note. Maintain Depakote. Adjust post-labs. Reduce Vistaril from 50 t.i.d. down to 25 mg t.i.d. p.r.n. anxiety. Rest unchanged. MAN Ivone PEÑA MD DR: CLAUDIO/lilly JOB#: [id number] / [id number]
[2019-01-27] MEDS: NYSTATIN TOPICAL POWDER 15GM BOTTLE. TP SCH ×2 (08:31→20:40)
[2019-01-27] MEDS: diphenhydrAMINE/ZINC 2%/0.1% 28GM TUBE. TP SCH ×3 (08:31→20:40)
[2019-01-27] MEDS: CEFDINIR 300 MG CAPSULE PO SCH ×2 (08:32→20:37)
[2019-01-27] MEDS: CETIRIZINE HCL 10 MG TABLET PO SCH (08:32)
[2019-01-27] MEDS: POTASSIUM CHLORIDE 10 MEQ TABLET.ER. PO SCH (08:33)
[2019-01-27] MEDS: QUEtiapine 25 MG TABLET. PO SCH ×3 (08:33→20:37)
[2019-01-27] MEDS: ASPIRIN 81 MG TAB.CHEW PO SCH (08:34)
[2019-01-27] MEDS: MULTIVITAMIN with MINERAL TABLET. PO SCH (08:34)
[2019-01-27] MEDS: CYANOCOBALAMIN (VITAMIN B-12) 1,000 MCG TABLET. PO SCH (08:34)
[2019-01-27] MEDS: SPIRONOLACTONE 25 MG TABLET PO SCH (08:34)
[2019-01-27] MEDS: FUROSEMIDE 40 MG TABLET PO SCH (08:34)
[2019-01-27] MEDS: DIVALPROEX 125 MG CAP.SPRINK PO SCH ×2 (08:34→17:25)
[2019-01-27] MEDS: AZITHROMYCIN 250 MG TABLET. PO SCH (08:34)
[2019-01-27] MEDS: METOPROLOL SUCC 24HR ER 50 MG TAB.ER.24H. PO SCH (08:34)
[2019-01-27] MEDS: LACTOBACILLUS RHAMNOSUS GG 1 CAPSULE. PO SCH ×2 (08:35→20:37)
[2019-01-27] MEDS: LOSARTAN 50 MG TABLET. PO SCH (08:35)
[2019-01-27] MEDS: INSULIN GLARGINE SYRINGE. SQ SCH ×2 (08:38→20:40)
[2019-01-27] MEDS: INSULIN LISPRO 300 UNITS/3 ML VIAL. SQ SCH ×3 (08:38→17:27)
[2019-01-27 16:19] VITALS: BP 116/69
[2019-01-27] MEDS: MELATONIN 3 MG TABLET PO SCH (20:37)
[2019-01-27] MEDS: CICLOPIROX 0.77% TOPICAL CREAM 15GM TUBE. TP SCH (20:40)
--- NOTE | 2019-01-27 21:30 | PDOC ---
Exam Note: Rene Note: Please also refer to the separate dictated note~for this date of service dictated separately.~Patient seen individually. Discussed the patient with Nursing staff reviewed the chart.~Reviewed interim history and current functioning. Reviewed vital signs,~Labs/ Radiology~and current medications noted below. Continue current treatment with the changes noted in the dictated addendum note Assessment: Vital Signs/I&O: Vital Signs Date Time Temp Pulse Resp B/P (MAP) Pulse Ox O2 Delivery O2 Flow Rate FiO2 01/27/19 16:19 98.1 83 16 116/69 (85) 98 01/24/19 16:15 Room Air I & O 01/26/19 01/26/19 01/27/19 15:00 23:00 07:00 Intake Total 720 ml 240 ml Balance 720 ml 240 ml Labs: Laboratory Tests Test 01/27/19 07:31 01/27/19 11:57 01/27/19 17:19 01/27/19 19:10 Glucose (Fingerstick) 85 mg/dL (70-99) 138 mg/dL (70-99) H 178 mg/dL (70-99) H 181 mg/dL (70-99) H Current Medications: I have reviewed the current psychotropics carefully including drug interactions. Risk benefit ratio favors no change other than as noted in my dictated progress note. Diagnosis: Problems: (1) Anxiety disorder (2) Acute psychosis (3) Dementia in Alzheimer's disease with delusions (4) Dementia in Alzheimer's disease with depression (5) Dementia, vascular, with delusions (6) Dementia, vascular, with depression (7) Impulse control disorder NICHOLE PEÑA MD Jan 27, 2019 21:30
[2019-01-28 05:33] VITALS: BP 121/62
[2019-01-28 07:00] LABS: BASO % 0 % (0-3); EOS # 0.3 x10^3/uL (0.0-0.7); EOS % 4 % (0-3); HEMATOCRIT 35.9 % (39.0-53.0); HEMOGLOBIN 11.9 g/dL (13.0-17.5); LYMPH # 3.5 x10^3/uL (1.0-4.8); LYMPH % 36 % (24-48); MEAN CORPUSCULAR HEMOGLOBIN 31 pg (25-35); MEAN CORPUSCULAR HGB CONC 33 g/dL (31-37); MEAN CORPUSCULAR VOLUME 94 fL (79-100); MONO # 0.9 x10^3/uL (0.0-1.1); MONO % 9 % (0-9); NEUT # 5.1 x10^3uL (1.8-7.7); NEUT % 52 % (31-73); PLATELET COUNT 299 x10^3/uL (140-400); RED BLOOD COUNT 3.83 x10^6/uL (4.30-5.70); RED CELL DISTRIBUTION WIDTH 13.3 % (11.5-14.5); WHITE BLOOD COUNT 9.9 x10^3/uL (4.0-11.0)
[2019-01-28 07:24] LABS: ALBUMIN/GLOBULIN RATIO 0.7 (1.0-1.7); ALK PHOS 91 U/L (46-116); ALT (SGPT) 17 U/L (16-63); ANION GAP 8 (6-14); AST (SGOT) 12 U/L (15-37); BLOOD UREA NITROGEN 23 mg/dL (8-26); BUN/CREATININE RATIO 19 (6-20); CALCIUM 8.6 mg/dL (8.5-10.1); CARBON DIOXIDE 27 mmol/L (21-32); CHLORIDE 100 mmol/L (98-107); CREATININE 1.2 mg/dL (0.7-1.3); GFR 57.8; GLUCOSE 115 mg/dL (70-99); POTASSIUM 4.2 mmol/L (3.5-5.1); SODIUM 135 mmol/L (136-145); TOTAL BILIRUBIN 0.3 mg/dL (0.2-1.0); TOTAL PROTEIN 7.1 g/dL (6.4-8.2)
[2019-01-28 07:25] LABS: VAL ACID 9 mcg/mL (50-100)
[2019-01-28] MEDS: DIVALPROEX 125 MG CAP.SPRINK PO SCH ×2 (08:32→17:11)
[2019-01-28] MEDS: LOSARTAN 50 MG TABLET. PO SCH (08:33)
[2019-01-28] MEDS: LACTOBACILLUS RHAMNOSUS GG 1 CAPSULE. PO SCH ×2 (08:33→20:47)
[2019-01-28] MEDS: SPIRONOLACTONE 25 MG TABLET PO SCH (08:33)
[2019-01-28] MEDS: ASPIRIN 81 MG TAB.CHEW PO SCH (08:33)
[2019-01-28] MEDS: QUEtiapine 25 MG TABLET. PO SCH ×3 (08:34→20:47)
[2019-01-28] MEDS: CEFDINIR 300 MG CAPSULE PO SCH ×2 (08:34→20:47)
[2019-01-28] MEDS: MULTIVITAMIN with MINERAL TABLET. PO SCH (08:34)
[2019-01-28] MEDS: FUROSEMIDE 40 MG TABLET PO SCH (08:34)
[2019-01-28] MEDS: NYSTATIN TOPICAL POWDER 15GM BOTTLE. TP SCH ×2 (08:35→20:52)
[2019-01-28] MEDS: diphenhydrAMINE/ZINC 2%/0.1% 28GM TUBE. TP SCH ×3 (08:35→20:52)
[2019-01-28] MEDS: CYANOCOBALAMIN (VITAMIN B-12) 1,000 MCG TABLET. PO SCH (08:35)
[2019-01-28] MEDS: AZITHROMYCIN 250 MG TABLET. PO SCH (08:35)
[2019-01-28] MEDS: CETIRIZINE HCL 10 MG TABLET PO SCH (08:35)
[2019-01-28] MEDS: METOPROLOL SUCC 24HR ER 50 MG TAB.ER.24H. PO SCH (08:38)
[2019-01-28] MEDS: POTASSIUM CHLORIDE 10 MEQ TABLET.ER. PO SCH (08:38)
[2019-01-28] MEDS: INSULIN GLARGINE SYRINGE. SQ SCH ×2 (08:40→20:51)
[2019-01-28] MEDS: INSULIN LISPRO 300 UNITS/3 ML VIAL. SQ SCH ×3 (08:40→17:16)
[2019-01-28 16:11] VITALS: BP 171/69
[2019-01-28] MEDS: MELATONIN 3 MG TABLET PO SCH (20:47)
[2019-01-28] MEDS: CICLOPIROX 0.77% TOPICAL CREAM 15GM TUBE. TP SCH (20:52)
--- NOTE | 2019-01-28 21:28 | PDOC ---
Exam Note: Rene Note: Please also refer to the separate dictated note~for this date of service dictated separately.~Patient seen individually. Discussed the patient with Nursing staff reviewed the chart.~Reviewed interim history and current functioning. Reviewed vital signs,~Labs/ Radiology~and current medications noted below. Continue current treatment with the changes noted in the dictated addendum note Assessment: Vital Signs/I&O: Vital Signs Date Time Temp Pulse Resp B/P (MAP) Pulse Ox O2 Delivery O2 Flow Rate FiO2 01/28/19 16:11 97.2 74 18 171/69 (103) 96 01/24/19 16:15 Room Air I & O 01/27/19 01/27/19 01/28/19 15:00 23:00 07:00 Intake Total 720 ml 600 ml Balance 720 ml 600 ml Labs: Laboratory Tests Test 01/28/19 06:25 01/28/19 08:10 01/28/19 12:04 01/28/19 17:05 White Blood Count 9.9 x10^3/uL (4.0-11.0) Red Blood Count 3.83 x10^6/uL (4.30-5.70) L Hemoglobin 11.9 g/dL (13.0-17.5) L Hematocrit 35.9 % (39.0-53.0) L Mean Corpuscular Volume 94 fL (79-100) Mean Corpuscular Hemoglobin 31 pg (25-35) Mean Corpuscular Hemoglobin Concent 33 g/dL (31-37) Red Cell Distribution Width 13.3 % (11.5-14.5) Platelet Count 299 x10^3/uL (140-400) Neutrophils (%) (Auto) 52 % (31-73) Lymphocytes (%) (Auto) 36 % (24-48) Monocytes (%) (Auto) 9 % (0-9) Eosinophils (%) (Auto) 4 % (0-3) H Basophils (%) (Auto) 0 % (0-3) Neutrophils # (Auto) 5.1 x10^3uL (1.8-7.7) Lymphocytes # (Auto) 3.5 x10^3/uL (1.0-4.8) Monocytes # (Auto) 0.9 x10^3/uL (0.0-1.1) Eosinophils # (Auto) 0.3 x10^3/uL (0.0-0.7) Basophils # (Auto) 0.0 x10^3/uL (0.0-0.2) Sodium Level 135 mmol/L (136-145) L Potassium Level 4.2 mmol/L (3.5-5.1) Chloride Level 100 mmol/L (98-107) Carbon Dioxide Level 27 mmol/L (21-32) Anion Gap 8 (6-14) Blood Urea Nitrogen 23 mg/dL (8-26) Creatinine 1.2 mg/dL (0.7-1.3) Estimated GFR (Cockcroft-Gault) 57.8 BUN/Creatinine Ratio 19 (6-20) Glucose Level 115 mg/dL (70-99) H Calcium Level 8.6 mg/dL (8.5-10.1) Total Bilirubin 0.3 mg/dL (0.2-1.0) Aspartate Amino Transferase (AST) 12 U/L (15-37) L Alanine Aminotransferase (ALT) 17 U/L (16-63) Alkaline Phosphatase 91 U/L (46-116) Total Protein 7.1 g/dL (6.4-8.2) Albumin 3.0 g/dL (3.4-5.0) L Albumin/Globulin Ratio 0.7 (1.0-1.7) L Valproic Acid Level 9 mcg/mL (50-100) L Valproic Acid Last Dose Date 01/27/19 Valproic Acid Last Dose Time 2100 Glucose (Fingerstick) 116 mg/dL (70-99) H 190 mg/dL (70-99) H 197 mg/dL (70-99) H Test 01/28/19 19:04 Glucose (Fingerstick) 247 mg/dL (70-99) H Current Medications: I have reviewed the current psychotropics carefully including drug interactions. Risk benefit ratio favors no change other than as noted in my dictated progress note. Diagnosis: Problems: (1) Anxiety disorder (2) Acute psychosis (3) Dementia in Alzheimer's disease with delusions (4) Dementia in Alzheimer's disease with depression (5) Dementia, vascular, with delusions (6) Dementia, vascular, with depression (7) Impulse control disorder NICHOLE PEÑA MD Jan 28, 2019 21:28
[2019-01-29 05:57] VITALS: BP 131/57
[2019-01-29] MEDS: NYSTATIN TOPICAL POWDER 15GM BOTTLE. TP SCH ×2 (08:38→20:53)
[2019-01-29] MEDS: diphenhydrAMINE/ZINC 2%/0.1% 28GM TUBE. TP SCH ×3 (08:38→20:52)
[2019-01-29] MEDS: CYANOCOBALAMIN (VITAMIN B-12) 1,000 MCG TABLET. PO SCH (08:41)
[2019-01-29] MEDS: DIVALPROEX 125 MG CAP.SPRINK PO SCH ×2 (08:41→12:09)
[2019-01-29] MEDS: MULTIVITAMIN with MINERAL TABLET. PO SCH (08:41)
[2019-01-29] MEDS: LOSARTAN 50 MG TABLET. PO SCH (08:42)
[2019-01-29] MEDS: POTASSIUM CHLORIDE 10 MEQ TABLET.ER. PO SCH (08:42)
[2019-01-29] MEDS: QUEtiapine 25 MG TABLET. PO SCH ×3 (08:43→20:51)
[2019-01-29] MEDS: CETIRIZINE HCL 10 MG TABLET PO SCH (08:43)
[2019-01-29] MEDS: CEFDINIR 300 MG CAPSULE PO SCH ×2 (08:43→20:51)
[2019-01-29] MEDS: SPIRONOLACTONE 25 MG TABLET PO SCH (08:43)
[2019-01-29] MEDS: FUROSEMIDE 40 MG TABLET PO SCH (08:44)
[2019-01-29] MEDS: METOPROLOL SUCC 24HR ER 50 MG TAB.ER.24H. PO SCH (08:44)
[2019-01-29] MEDS: LACTOBACILLUS RHAMNOSUS GG 1 CAPSULE. PO SCH ×2 (08:44→20:51)
[2019-01-29] MEDS: INSULIN LISPRO 300 UNITS/3 ML VIAL. SQ SCH ×3 (08:47→17:24)
[2019-01-29] MEDS: INSULIN GLARGINE SYRINGE. SQ SCH ×2 (08:48→20:56)
[2019-01-29] MEDS: ASPIRIN 81 MG TAB.CHEW PO SCH (08:55)
[2019-01-29 15:51] VITALS: BP 137/75
--- NOTE | 2019-01-29 18:44 | PN ---
DATE: 01/28/2019 PSYCHIATRIC PROGRESS NOTE This late entry 01/28/2019 covers elements not covered in my initial note. SUBJECTIVE: I met with the patient evening of 01/28/2019. The patient remains confused, slept 6-1/2 hours previous night, not agitated, aggressive, redirectable. REVIEW OF SYSTEMS: No CV, , pulmonary, eye system symptoms on review. Reliability poor. MENTAL STATUS EXAM: Oriented to himself. Insight, judgment, recent and remote memory, attention, concentration, fund of knowledge poor, consistent with his diagnosis mentioned in my initial note. PLAN: No change from initial note. MAN Ivone PEÑA MD DR: CLAUDIO/lilly JOB#: [id number] / [id number]
--- NOTE | 2019-01-29 18:46 | PN ---
DATE: 01/27/2019 This late entry, 01/27/2019, covers the elements not covered in my initial note. SUBJECTIVE: I met with the patient evening of 01/27/2019. The patient slept 7-1/2 hours previous night. Per Milla RN, he has had a good day, remains confused. REVIEW OF SYSTEMS: No CV, , pulmonary, or eye system symptoms on review. Reliability is poor. MENTAL STATUS EXAM: Oriented to himself. Insight, judgment, recent and remote memory, attention, concentration, and fund of knowledge are poor and consistent with his diagnosis mentioned in my initial note. PLAN: No change from initial note. MAN Ivone PEÑA MD DR: CLAUDIO/lilly JOB#: [id number] / [id number]
[2019-01-29] MEDS: MELATONIN 3 MG TABLET PO SCH (20:51)
[2019-01-29] MEDS: CICLOPIROX 0.77% TOPICAL CREAM 15GM TUBE. TP SCH (20:52)
--- NOTE | 2019-01-29 21:50 | PDOC ---
Exam Note: Rene Note: Please also refer to the separate dictated note~for this date of service dictated separately.~Patient seen individually. Discussed the patient with Nursing staff reviewed the chart.~Reviewed interim history and current functioning. Reviewed vital signs,~Labs/ Radiology~and current medications noted below. Continue current treatment with the changes noted in the dictated addendum note Assessment: Vital Signs/I&O: Vital Signs Date Time Temp Pulse Resp B/P (MAP) Pulse Ox O2 Delivery O2 Flow Rate FiO2 01/29/19 15:51 97.6 84 16 137/75 (95) 79 01/29/19 05:57 Room Air I & O 01/28/19 01/28/19 01/29/19 15:00 23:00 07:00 Intake Total 720 ml 900 ml Balance 720 ml 900 ml Labs: Laboratory Tests Test 01/29/19 08:07 01/29/19 11:53 01/29/19 17:07 01/29/19 19:05 Glucose (Fingerstick) 113 mg/dL (70-99) H 158 mg/dL (70-99) H 135 mg/dL (70-99) H 171 mg/dL (70-99) H Current Medications: I have reviewed the current psychotropics carefully including drug interactions. Risk benefit ratio favors no change other than as noted in my dictated progress note. Diagnosis: Problems: (1) Anxiety disorder (2) Acute psychosis (3) Dementia in Alzheimer's disease with delusions (4) Dementia in Alzheimer's disease with depression (5) Dementia, vascular, with delusions (6) Dementia, vascular, with depression (7) Impulse control disorder NICHOLE PEÑA MD Jan 29, 2019 21:50
[2019-01-30 05:23] VITALS: BP 187/95
[2019-01-30] MEDS: DIVALPROEX 125 MG CAP.SPRINK PO SCH ×2 (08:29→17:19)
[2019-01-30] MEDS: SPIRONOLACTONE 25 MG TABLET PO SCH (08:30)
[2019-01-30] MEDS: POTASSIUM CHLORIDE 10 MEQ TABLET.ER. PO SCH (08:30)
[2019-01-30] MEDS: LACTOBACILLUS RHAMNOSUS GG 1 CAPSULE. PO SCH ×2 (08:30→21:24)
[2019-01-30] MEDS: ASPIRIN 81 MG TAB.CHEW PO SCH (08:30)
[2019-01-30] MEDS: LOSARTAN 50 MG TABLET. PO SCH (08:30)
[2019-01-30] MEDS: FUROSEMIDE 40 MG TABLET PO SCH (08:31)
[2019-01-30] MEDS: QUEtiapine 25 MG TABLET. PO SCH ×3 (08:31→21:24)
[2019-01-30] MEDS: CETIRIZINE HCL 10 MG TABLET PO SCH (08:31)
[2019-01-30] MEDS: MULTIVITAMIN with MINERAL TABLET. PO SCH (08:31)
[2019-01-30] MEDS: METOPROLOL SUCC 24HR ER 50 MG TAB.ER.24H. PO SCH (08:31)
[2019-01-30] MEDS: CEFDINIR 300 MG CAPSULE PO SCH ×2 (08:31→21:24)
[2019-01-30] MEDS: CYANOCOBALAMIN (VITAMIN B-12) 1,000 MCG TABLET. PO SCH (08:31)
[2019-01-30] MEDS: INSULIN GLARGINE SYRINGE. SQ SCH ×2 (08:33→21:25)
[2019-01-30] MEDS: INSULIN LISPRO 300 UNITS/3 ML VIAL. SQ SCH ×3 (08:34→17:20)
[2019-01-30] MEDS: NYSTATIN TOPICAL POWDER 15GM BOTTLE. TP SCH ×2 (08:34→21:25)
[2019-01-30] MEDS: diphenhydrAMINE/ZINC 2%/0.1% 28GM TUBE. TP SCH ×3 (08:35→21:24)
[2019-01-30] MEDS ORDERED: FLU VAX QS 2019-20 (36MOS+)/PF 0.5 ML SYRINGE. VAX IM ONE (14:00)
[2019-01-30 15:48] VITALS: BP 128/77
--- NOTE | 2019-01-30 21:11 | PDOC ---
Exam Note: Rene Note: Please also refer to the separate dictated note~for this date of service dictated separately.~Patient seen individually. Discussed the patient with Nursing staff reviewed the chart.~Reviewed interim history and current functioning. Reviewed vital signs,~Labs/ Radiology~and current medications noted below. Continue current treatment with the changes noted in the dictated addendum note Assessment: Vital Signs/I&O: Vital Signs Date Time Temp Pulse Resp B/P (MAP) Pulse Ox O2 Delivery O2 Flow Rate FiO2 01/30/19 15:48 98.8 62 16 128/77 (94) 95 01/30/19 05:23 Room Air I & O 01/29/19 01/29/19 01/30/19 15:00 23:00 07:00 Intake Total 840 ml Balance 840 ml Labs: Laboratory Tests Test 01/30/19 07:22 01/30/19 12:06 01/30/19 16:55 01/30/19 19:33 Glucose (Fingerstick) 121 mg/dL (70-99) H 195 mg/dL (70-99) H 125 mg/dL (70-99) H 184 mg/dL (70-99) H Current Medications: Meds: Current Medications Medications (Trade) Dose Ordered Sig/Joanna Route PRN Reason Start Time Stop Time Status Last Admin Dose Admin Influenza Virus Vaccine Quadrival (Afluria Quad 2018- (3yr Up) Syringe) 0.5 ml ONCE ONCE VAX IM 01/30/19 14:00 01/30/19 14:01 DC 01/30/19 14:15 I have reviewed the current psychotropics carefully including drug interactions. Risk benefit ratio favors no change other than as noted in my dictated progress note. Diagnosis: Problems: (1) Anxiety disorder (2) Acute psychosis (3) Dementia in Alzheimer's disease with delusions (4) Dementia in Alzheimer's disease with depression (5) Dementia, vascular, with delusions (6) Dementia, vascular, with depression (7) Impulse control disorder NICHOLE PEÑA MD Jan 30, 2019 21:11
[2019-01-30] MEDS: MELATONIN 3 MG TABLET PO SCH (21:24)
[2019-01-30] MEDS: CICLOPIROX 0.77% TOPICAL CREAM 15GM TUBE. TP SCH (21:24)
[2019-01-31 05:17] VITALS: BP 104/61
[2019-01-31] MEDS: QUEtiapine 25 MG TABLET. PO SCH ×3 (08:43→20:21)
[2019-01-31] MEDS: CHOLECALCIFEROL (VITAMIN D3) 50,000 UNIT CAPSULE PO SCH (08:43)
[2019-01-31] MEDS: CYANOCOBALAMIN (VITAMIN B-12) 1,000 MCG TABLET. PO SCH (08:43)
[2019-01-31] MEDS: MULTIVITAMIN with MINERAL TABLET. PO SCH (08:43)
[2019-01-31] MEDS: DIVALPROEX 125 MG CAP.SPRINK PO SCH ×2 (08:43→17:24)
[2019-01-31] MEDS: POTASSIUM CHLORIDE 10 MEQ TABLET.ER. PO SCH (08:43)
[2019-01-31] MEDS: LACTOBACILLUS RHAMNOSUS GG 1 CAPSULE. PO SCH ×2 (08:43→20:21)
[2019-01-31] MEDS: SPIRONOLACTONE 25 MG TABLET PO SCH (08:43)
[2019-01-31] MEDS: ASPIRIN 81 MG TAB.CHEW PO SCH (08:43)
[2019-01-31] MEDS: LOSARTAN 50 MG TABLET. PO SCH (08:44)
[2019-01-31] MEDS: CEFDINIR 300 MG CAPSULE PO SCH (08:44)
[2019-01-31] MEDS: CETIRIZINE HCL 10 MG TABLET PO SCH (08:44)
[2019-01-31] MEDS: FUROSEMIDE 40 MG TABLET PO SCH (08:44)
[2019-01-31] MEDS: METOPROLOL SUCC 24HR ER 50 MG TAB.ER.24H. PO SCH (08:44)
[2019-01-31] MEDS: diphenhydrAMINE/ZINC 2%/0.1% 28GM TUBE. TP SCH ×3 (08:45→20:22)
[2019-01-31] MEDS: NYSTATIN TOPICAL POWDER 15GM BOTTLE. TP SCH ×2 (08:45→20:21)
[2019-01-31] MEDS: INSULIN GLARGINE SYRINGE. SQ SCH ×2 (09:42→21:18)
[2019-01-31] MEDS: INSULIN LISPRO 300 UNITS/3 ML VIAL. SQ SCH ×3 (09:42→17:28)
--- NOTE | 2019-01-31 12:47 | PN ---
DATE: 01/29/2019 PSYCHIATRIC PROGRESS NOTE This late entry 01/29/2019 covers elements not covered in my initial note. SUBJECTIVE: I met with the patient evening of 01/29/2019. The patient slept 6-3/4 hours previous night. He remains confused. Speech is garbled. REVIEW OF SYSTEMS: No CV, , pulmonary, eye, ENT system symptoms on review. He is not aggressive. MENTAL STATUS EXAM: Oriented to himself. Insight, judgment, recent and remote memory, attention, concentration, fund of knowledge poor, consistent with his diagnosis mentioned in my initial note. PLAN: No change from initial note. MAN Ivone PEÑA MD DR: CLAUDIO/lilly JOB#: [id number] / [id number]
--- NOTE | 2019-01-31 13:12 | PN ---
DATE: 01/30/2019 PSYCHIATRIC PROGRESS NOTE This late entry January 30 covers elements not covered in my initial note. SUBJECTIVE: I met with the patient evening of January 30. The patient slept 8-1/2 hours previous night. He remains confused, but not aggressive. REVIEW OF SYSTEMS: No CV, , pulmonary, eye, ENT system symptoms on review. Reliability poor. MENTAL STATUS EXAM: Oriented to himself. Insight, judgment, recent and remote memory, attention, concentration, fund of knowledge poor, consistent with his diagnosis mentioned in my initial note. PLAN: No change from initial note. MAN Ivone PEÑA MD DR: CLAUDIO/lilly JOB#: [id number] / [id number]
[2019-01-31 15:49] VITALS: BP 107/65
[2019-01-31] MEDS: MELATONIN 3 MG TABLET PO SCH (20:21)
[2019-01-31] MEDS: CICLOPIROX 0.77% TOPICAL CREAM 15GM TUBE. TP SCH (20:21)
--- NOTE | 2019-01-31 21:35 | PDOC ---
Exam Note: Rene Note: Please also refer to the separate dictated note~for this date of service dictated separately.~Patient seen individually. Discussed the patient with Nursing staff reviewed the chart.~Reviewed interim history and current functioning. Reviewed vital signs,~Labs/ Radiology~and current medications noted below. Continue current treatment with the changes noted in the dictated addendum note Assessment: Vital Signs/I&O: Vital Signs Date Time Temp Pulse Resp B/P (MAP) Pulse Ox O2 Delivery O2 Flow Rate FiO2 01/31/19 15:49 98.5 78 18 107/65 (79) 95 01/31/19 05:17 Room Air I & O 01/30/19 01/30/19 01/31/19 15:00 23:00 07:00 Intake Total 480 ml 240 ml Balance 480 ml 240 ml Labs: Laboratory Tests Test 01/31/19 07:29 01/31/19 09:10 01/31/19 11:36 01/31/19 16:45 Glucose (Fingerstick) 77 mg/dL (70-99) 222 mg/dL (70-99) H 165 mg/dL (70-99) H 171 mg/dL (70-99) H Test 01/31/19 19:17 Glucose (Fingerstick) 220 mg/dL (70-99) H Current Medications: I have reviewed the current psychotropics carefully including drug interactions. Risk benefit ratio favors no change other than as noted in my dictated progress note. Diagnosis: Problems: (1) Anxiety disorder (2) Acute psychosis (3) Dementia in Alzheimer's disease with delusions (4) Dementia in Alzheimer's disease with depression (5) Dementia, vascular, with delusions (6) Dementia, vascular, with depression (7) Impulse control disorder NICHOLE PEÑA MD Jan 31, 2019 21:35
[2019-02-01 05:37] VITALS: BP 136/65
[2019-02-01] MEDS: INSULIN LISPRO 300 UNITS/3 ML VIAL. SQ SCH ×3 (08:36→17:39)
[2019-02-01] MEDS: CYANOCOBALAMIN (VITAMIN B-12) 1,000 MCG TABLET. PO SCH (08:37)
[2019-02-01] MEDS: LOSARTAN 50 MG TABLET. PO SCH (08:37)
[2019-02-01] MEDS: ASPIRIN 81 MG TAB.CHEW PO SCH (08:37)
[2019-02-01] MEDS: FUROSEMIDE 40 MG TABLET PO SCH (08:37)
[2019-02-01] MEDS: LACTOBACILLUS RHAMNOSUS GG 1 CAPSULE. PO SCH ×2 (08:38→20:21)
[2019-02-01] MEDS: SPIRONOLACTONE 25 MG TABLET PO SCH (08:38)
[2019-02-01] MEDS: DIVALPROEX 125 MG CAP.SPRINK PO SCH ×2 (08:38→17:39)
[2019-02-01] MEDS: METOPROLOL SUCC 24HR ER 50 MG TAB.ER.24H. PO SCH (08:39)
[2019-02-01] MEDS: CETIRIZINE HCL 10 MG TABLET PO SCH (08:39)
[2019-02-01] MEDS: QUEtiapine 25 MG TABLET. PO SCH ×3 (08:41→20:21)
[2019-02-01] MEDS: MULTIVITAMIN with MINERAL TABLET. PO SCH (08:41)
[2019-02-01] MEDS: POTASSIUM CHLORIDE 10 MEQ TABLET.ER. PO SCH (08:41)
[2019-02-01] MEDS: INSULIN GLARGINE SYRINGE. SQ SCH ×2 (09:00→20:23)
[2019-02-01] MEDS: NYSTATIN TOPICAL POWDER 15GM BOTTLE. TP SCH ×2 (09:00→20:21)
[2019-02-01] MEDS: diphenhydrAMINE/ZINC 2%/0.1% 28GM TUBE. TP SCH ×3 (09:00→20:21)
--- NOTE | 2019-02-01 13:17 | PN ---
DATE: 02/01/2019 SUBJECTIVE: The patient was seen today, met with the staff, chart reviewed. Also, covering for Dr. Gaviria. Staff reports some improvement. He is pleasant, cooperative, but still confused and apparently he is compliant with the treatment including medications. OBSERVATION: VITAL SIGNS: Temperature 97.6, blood pressure 136/65, pulse 60, respirations 20, O2 sat 93%. Slept about 7 hours last night. CURRENT MEDICATIONS: Include Seroquel 12.5 mg daily, Depakote 125 mg b.i.d., melatonin 6 mg at night. The patient is not having any side effects to medications. LABORATORY DATA: The patient's lab reviewed, no significant change from the prior levels. ASSESSMENT: Major neurocognitive disorder, most likely Alzheimer's, vascular with delusions, depression, behavioral disturbances, and impulse control disorder, unspecified. PLAN: To continue with the current treatment plan. LENGTH OF STAY: 7 days. RAFAEL TRINH MD DR: AGGIE/lilly JOB#: [id number] / [id number]
[2019-02-01 15:35] VITALS: BP 125/71
[2019-02-01] MEDS: CICLOPIROX 0.77% TOPICAL CREAM 15GM TUBE. TP SCH (20:21)
[2019-02-01] MEDS: MELATONIN 3 MG TABLET PO SCH (20:21)
[2019-02-02 05:43] VITALS: BP 120/66
[2019-02-02] MEDS: SPIRONOLACTONE 25 MG TABLET PO SCH (08:35)
[2019-02-02] MEDS: CETIRIZINE HCL 10 MG TABLET PO SCH (08:35)
[2019-02-02] MEDS: INSULIN LISPRO 300 UNITS/3 ML VIAL. SQ SCH ×3 (08:35→17:40)
[2019-02-02] MEDS: POTASSIUM CHLORIDE 10 MEQ TABLET.ER. PO SCH (08:36)
[2019-02-02] MEDS: LACTOBACILLUS RHAMNOSUS GG 1 CAPSULE. PO SCH ×2 (08:36→20:31)
[2019-02-02] MEDS: LOSARTAN 50 MG TABLET. PO SCH (08:36)
[2019-02-02] MEDS: MULTIVITAMIN with MINERAL TABLET. PO SCH (08:38)
[2019-02-02] MEDS: ASPIRIN 81 MG TAB.CHEW PO SCH (08:38)
[2019-02-02] MEDS: QUEtiapine 25 MG TABLET. PO SCH ×3 (08:38→20:31)
[2019-02-02] MEDS: METOPROLOL SUCC 24HR ER 50 MG TAB.ER.24H. PO SCH (08:39)
[2019-02-02] MEDS: CYANOCOBALAMIN (VITAMIN B-12) 1,000 MCG TABLET. PO SCH (08:39)
[2019-02-02] MEDS: DIVALPROEX 125 MG CAP.SPRINK PO SCH ×2 (08:39→17:38)
[2019-02-02] MEDS: FUROSEMIDE 40 MG TABLET PO SCH (08:39)
[2019-02-02] MEDS: diphenhydrAMINE/ZINC 2%/0.1% 28GM TUBE. TP SCH ×3 (09:00→20:35)
[2019-02-02] MEDS: NYSTATIN TOPICAL POWDER 15GM BOTTLE. TP SCH ×2 (09:00→20:36)
[2019-02-02] MEDS: INSULIN GLARGINE SYRINGE. SQ SCH ×2 (12:51→20:34)
[2019-02-02 16:13] VITALS: BP 138/72
[2019-02-02] MEDS: hydrOXYzine PAMOATE 25 MG CAPSULE PO PRN ×2 (16:37→20:30)
[2019-02-02] MEDS: MELATONIN 3 MG TABLET PO SCH (20:31)
[2019-02-02] MEDS: CICLOPIROX 0.77% TOPICAL CREAM 15GM TUBE. TP SCH (20:35)
--- NOTE | 2019-02-02 21:18 | PN ---
DATE: 02/02/2019 SUBJECTIVE: The patient was seen today, met with the staff, chart reviewed. The patient is still confused, but cooperative and medication compliant. Staff reports no major behavior problems and much calmer. OBSERVATION: VITAL SIGNS: Temperature 97.3, blood pressure 120/66, pulse 65, respirations 16, O2 sat 96%. GENERAL: Slept about 7 hours last night. The patient's appetite has improved. LABORATORY DATA: The patient's lab reviewed. MEDICATIONS: The patient's current medications include Seroquel 12.5 mg daily, Depakote 125 mg b.i.d., melatonin 6 mg at night. The patient denies of any side effects and no major medical issues. ASSESSMENT: 1. Major neurocognitive disorder, most likely Alzheimer's, vascular with delusions, depression and behavioral disturbances. 2. Impulse control disorder, unspecified. PLAN: To continue with the treatment. LENGTH OF STAY: 7 days. RAFAEL TRINH MD DR: AGGIE/lilly JOB#: [id number] / [id number]
[2019-02-03 05:55] VITALS: BP 165/71
[2019-02-03] MEDS: INSULIN LISPRO 300 UNITS/3 ML VIAL. SQ SCH ×3 (07:30→17:42)
[2019-02-03] MEDS: QUEtiapine 25 MG TABLET. PO SCH ×3 (08:34→20:04)
[2019-02-03] MEDS: SPIRONOLACTONE 25 MG TABLET PO SCH (08:35)
[2019-02-03] MEDS: LOSARTAN 50 MG TABLET. PO SCH (08:37)
[2019-02-03] MEDS: METOPROLOL SUCC 24HR ER 50 MG TAB.ER.24H. PO SCH (08:37)
[2019-02-03] MEDS: LACTOBACILLUS RHAMNOSUS GG 1 CAPSULE. PO SCH ×2 (08:38→20:05)
[2019-02-03] MEDS: MULTIVITAMIN with MINERAL TABLET. PO SCH (08:38)
[2019-02-03] MEDS: POTASSIUM CHLORIDE 10 MEQ TABLET.ER. PO SCH (08:38)
[2019-02-03] MEDS: DIVALPROEX 125 MG CAP.SPRINK PO SCH ×2 (08:38→17:09)
[2019-02-03] MEDS: ASPIRIN 81 MG TAB.CHEW PO SCH (08:38)
[2019-02-03] MEDS: CETIRIZINE HCL 10 MG TABLET PO SCH (08:38)
[2019-02-03] MEDS: CYANOCOBALAMIN (VITAMIN B-12) 1,000 MCG TABLET. PO SCH (08:38)
[2019-02-03] MEDS: FUROSEMIDE 40 MG TABLET PO SCH (08:39)
[2019-02-03] MEDS: diphenhydrAMINE/ZINC 2%/0.1% 28GM TUBE. TP SCH ×3 (08:40→20:04)
[2019-02-03] MEDS: NYSTATIN TOPICAL POWDER 15GM BOTTLE. TP SCH ×2 (08:40→20:04)
[2019-02-03] MEDS: INSULIN GLARGINE SYRINGE. SQ SCH ×2 (08:42→22:20)
[2019-02-03] MEDS ORDERED: DIVA125C2 PO (15:07)
[2019-02-03] MEDS ORDERED: HYDR25CA75 PO (15:09)
[2019-02-03] MEDS ORDERED: GUAI473L15 PO (15:12)
[2019-02-03] MEDS ORDERED: GUAI237L83 PO (15:14)
[2019-02-03] MEDS ORDERED: LACT1CAP19 PO (15:16)
[2019-02-03] MEDS ORDERED: CHOL500050 PO (15:19)
[2019-02-03] MEDS ORDERED: METO50TA29 PO (15:20)
[2019-02-03] MEDS ORDERED: QUET25TA5 PO (15:22)
[2019-02-03] MEDS ORDERED: METH28OI2 TP (15:24)
[2019-02-03 15:56] VITALS: BP 114/68
[2019-02-03] MEDS: CICLOPIROX 0.77% TOPICAL CREAM 15GM TUBE. TP SCH (20:04)
[2019-02-03] MEDS: MELATONIN 3 MG TABLET PO SCH (20:06)
--- NOTE | 2019-02-03 21:14 | PDOC ---
Exam Note: Rene Note: Please also refer to the separate dictated note~for this date of service dictated separately.~Patient seen individually. Discussed the patient with Nursing staff reviewed the chart.~Reviewed interim history and current functioning. Reviewed vital signs,~Labs/ Radiology~and current medications noted below. Continue current treatment with the changes noted in the dictated addendum note Assessment: Vital Signs/I&O: Vital Signs Date Time Temp Pulse Resp B/P (MAP) Pulse Ox O2 Delivery O2 Flow Rate FiO2 02/03/19 15:56 97.9 64 18 114/68 (83) 96 02/01/19 05:37 Room Air I & O 02/02/19 02/02/19 02/03/19 15:00 23:00 07:00 Intake Total 840 ml 240 ml Balance 840 ml 240 ml Labs: Laboratory Tests Test 02/03/19 07:43 02/03/19 11:45 02/03/19 16:56 02/03/19 19:34 Glucose (Fingerstick) 85 mg/dL (70-99) 146 mg/dL (70-99) H 140 mg/dL (70-99) H 201 mg/dL (70-99) H Current Medications: I have reviewed the current psychotropics carefully including drug interactions. Risk benefit ratio favors no change other than as noted in my dictated progress note. Diagnosis: Problems: (1) Anxiety disorder (2) Acute psychosis (3) Dementia in Alzheimer's disease with delusions (4) Dementia in Alzheimer's disease with depression (5) Dementia, vascular, with delusions (6) Dementia, vascular, with depression (7) Impulse control disorder NICHOLE PEÑA MD Feb 03, 2019 21:14
--- NOTE | 2019-02-03 22:41 | PN ---
DATE: 01/31/2019 PSYCHIATRIC PROGRESS NOTE This late entry 01/31/2019 covers elements not covered in my initial note. SUBJECTIVE: I met with the patient evening of 01/31/2019 and staffed at treatment team meeting with the entire team earlier in the day. The patient is sleeping 6-3/4 hours average, slept 5-1/2 hours previous night. Appetite 100%, compliant with medications, confused. REVIEW OF SYSTEMS: No CV, , pulmonary, eye, ENT system symptoms on review. Reliability poor. MENTAL STATUS EXAM: Oriented to himself. Insight, judgment, recent and remote memory, attention, concentration, fund of knowledge poor, consistent with his diagnosis. LABORATORY DATA: Reviewed. IMPRESSION: Unchanged from initial note. PLAN: No change from initial note. MAN Ivone PEÑA MD DR: CLAUDIO/lilly JOB#: [id number] / [id number]
[2019-02-04] MEDS ORDERED: MAG30ORA2 PO (00:46)
[2019-02-04] MEDS ORDERED: MAGN400O7 PO (00:47)
[2019-02-04 05:19] VITALS: BP 161/78
[2019-02-04] MEDS: INSULIN LISPRO 300 UNITS/3 ML VIAL. SQ SCH (07:30)
[2019-02-04] MEDS ORDERED: DIVALPROEX 125 MG CAP.SPRINK PO SCH (08:00)
[2019-02-04] MEDS: SPIRONOLACTONE 25 MG TABLET PO SCH (08:34)
[2019-02-04] MEDS: LOSARTAN 50 MG TABLET. PO SCH (08:34)
[2019-02-04] MEDS: LACTOBACILLUS RHAMNOSUS GG 1 CAPSULE. PO SCH (08:34)
[2019-02-04 08:35] VITALS: BP 161/78
[2019-02-04] MEDS: MULTIVITAMIN with MINERAL TABLET. PO SCH (08:35)
[2019-02-04] MEDS: CETIRIZINE HCL 10 MG TABLET PO SCH (08:35)
[2019-02-04] MEDS: ASPIRIN 81 MG TAB.CHEW PO SCH (08:35)
[2019-02-04] MEDS: CYANOCOBALAMIN (VITAMIN B-12) 1,000 MCG TABLET. PO SCH (08:35)
[2019-02-04] MEDS: QUEtiapine 25 MG TABLET. PO SCH (08:35)
[2019-02-04] MEDS: METOPROLOL SUCC 24HR ER 50 MG TAB.ER.24H. PO SCH (08:35)
[2019-02-04] MEDS: FUROSEMIDE 40 MG TABLET PO SCH (08:36)
[2019-02-04] MEDS: POTASSIUM CHLORIDE 10 MEQ TABLET.ER. PO SCH (08:36)
[2019-02-04] MEDS: diphenhydrAMINE/ZINC 2%/0.1% 28GM TUBE. TP SCH (08:37)
[2019-02-04] MEDS: NYSTATIN TOPICAL POWDER 15GM BOTTLE. TP SCH (08:37)
[2019-02-04] MEDS: INSULIN GLARGINE SYRINGE. SQ SCH (08:38)
--- NOTE | 2019-02-04 21:21 | PDOC ---
Exam Note: Rene Note: Please also refer to the separate dictated note~for this date of service dictated separately.~Patient seen individually. Discussed the patient with Nursing staff reviewed the chart.~Reviewed interim history and current functioning. Reviewed vital signs,~Labs/ Radiology~and current medications noted below. Continue current treatment with the changes noted in the dictated addendum note Assessment: Vital Signs/I&O: Vital Signs Date Time Temp Pulse Resp B/P (MAP) Pulse Ox O2 Delivery O2 Flow Rate FiO2 02/04/19 08:35 67 161/78 02/04/19 05:19 97.9 20 98 02/01/19 05:37 Room Air I & O 02/03/19 02/03/19 02/04/19 15:00 23:00 07:00 Intake Total 960 ml 600 ml Balance 960 ml 600 ml Labs: Laboratory Tests Test 02/04/19 07:34 Glucose (Fingerstick) 80 mg/dL (70-99) Current Medications: Meds: Current Medications Medications (Trade) Dose Ordered Sig/Joanna Route PRN Reason Start Time Stop Time Status Last Admin Dose Admin Divalproex Sodium (Depakote Sprinkles) 250 mg BIDWMEALS PO 02/04/19 08:00 02/04/19 11:55 DC 02/04/19 08:33 I have reviewed the current psychotropics carefully including drug interactions. Risk benefit ratio favors no change other than as noted in my dictated progress note. Diagnosis: Problems: (1) Anxiety disorder (2) Acute psychosis (3) Dementia in Alzheimer's disease with delusions (4) Dementia in Alzheimer's disease with depression (5) Dementia, vascular, with delusions (6) Dementia, vascular, with depression (7) Impulse control disorder NICHOLE PEÑA MD Feb 04, 2019 21:21
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
--- NOTE | 2019-02-07 01:07 | PN ---
DATE: 02/03/2019 PSYCHIATRIC PROGRESS NOTE This late entry 02/03/2019 covers the elements not covered in my initial note. SUBJECTIVE: I met with the patient in the evening. Per JULIA Trujillo, the patient slept 7-3/4 hours previous night. He was resistive to showers in the morning, better later in the day. REVIEW OF SYSTEMS: No CV, , pulmonary, eye, ENT system symptoms on review. Reliability poor. MENTAL STATUS EXAM: Oriented to himself. Insight, judgment, recent and remote memory, attention, concentration, fund of knowledge poor, consistent with his diagnosis mentioned in my initial note. PLAN: Change Depakote Sprinkles from 125 mg twice a day to 250 mg twice a day. Check CBC, CMP, valproic acid level in 3 days. Current valproic acid level is 9. Rest unchanged. MAN Ivone PEÑA MD DR: CLAUDIO/lilly JOB#: [id number] / [id number]
== END 2019-02-04 11:54 | DRG 57 ==
LOC: GEROPSY 16:31
PROVIDERS: ADMIT Psychiatry & Neurology Psychiatry; ATTEND Psychiatry & Neurology Psychiatry
DX: G30.9 Alzheimer's disease, unspecified (principal); F23 Brief psychotic disorder; R47.01 Aphasia; F01.50 Vascular dementia, unspecified severity, without behavioral disturbance, psychotic disturbance, mood disturbance, and anxiety; E11.9 Type 2 diabetes mellitus without complications; E78.5 Hyperlipidemia, unspecified; E55.9 Vitamin D deficiency, unspecified; F02.80 Dementia in other diseases classified elsewhere, unspecified severity, without behavioral disturbance, psychotic disturbance, mood disturbance, and anxiety; F32.9 Major depressive disorder, single episode, unspecified; F41.9 Anxiety disorder, unspecified; F63.9 Impulse disorder, unspecified; I11.0 Hypertensive heart disease with heart failure; I50.9 Heart failure, unspecified
CPT/HCPCS: 36415; 80053; 80061; 80164; 82306; 82607; 82947; 83036; 83540; 83550; 84436; 84443; 84480; 85025; 85027; 86592; 90471; 90686; J0456; J1815; Q0177; 97535

== ENCOUNTER 2019-06-26 16:06 | Observation (INO) | payer OTHER, MEDICAID ==
[~2019-06-26] VITALS: Ht 172.7 cm; Wt 103.4 kg
[~2019-06-26 16:06] MED LIST changes: +CHOL500050 PO; +DIVA125C2 PO; +GUAI237L83 PO; +HYDR25CA75 PO; +INSU100V31 SQ; +LACT1CAP19 PO; +LIDOCAINE VISCOUS 2% PO; +MAG30ORA2 PO; +MELA3TAB4 PO; -MELA3TAB56 PO; +METH28OI2 TP; +METO50TA29 PO; +QUET25TA5 PO; +[UNRECOGNIZED DRUG - CODE] PO
--- NOTE | 2019-06-26 16:52 | RAD ---
PORTABLE CHEST 1V History: Altered mental status. Comparison: January 22, 2019. Findings: Low lung volumes. Patchy bibasilar opacities. No pleural effusion. No pneumothorax. Normal heart size. Impression: 1. Low lung volumes with patchy bibasilar opacities, likely atelectasis. Electronically signed by: Chintan Knight DO (06/26/2019 4:49 PM) [facility]
[2019-06-26 17:02] LABS: BASO # 0.1 x10^3/uL (0.0-0.2); BASO % 0 % (0-3); EOS # 0.3 x10^3/uL (0.0-0.7); EOS % 3 % (0-3); HEMOGLOBIN 12.2 g/dL (13.0-17.5); LYMPH # 3.2 x10^3/uL (1.0-4.8); LYMPH % 24 % (24-48); MEAN CORPUSCULAR HEMOGLOBIN 31 pg (25-35); MEAN CORPUSCULAR HGB CONC 34 g/dL (31-37); MEAN CORPUSCULAR VOLUME 91 fL (79-100); MONO % 7 % (0-9); NEUT % 66 % (31-73); PLATELET COUNT 352 x10^3/uL (140-400); RED BLOOD COUNT 3.94 x10^6/uL (4.30-5.70); WHITE BLOOD COUNT 13.6 x10^3/uL (4.0-11.0)
--- NOTE | 2019-06-26 17:13 | EKG ---
[address] [address] Test Date: 2019-06-26 Test Time: 16:28:12 Pat Name: SHERMAN MARTINEZ Department: Room: Gender: M Content Specialist: : 1935 Requested By: BEATRIS HINES Order Number: [id number] Reading MD: Severino Mota Measurements Intervals [place] Rate: 91 P: 41 W[place]: 256 QRS: -65 QRSD: 122 T: 42 QT: 380 QTc: 469 Interpretive Statements SINUS RHYTHM PROLONGED WY INTERVAL ABNORMAL LEFT AXIS DEVIATION LEFT ANTERIOR FASCICULAR BLOCK INCOMPLETE RIGHT BUNDLE BRANCH BLOCK ABNORMAL ECG Electronically Signed On 06-27-2019 8:25:54 CDT by Severino Mota
[2019-06-26 17:26] LABS: MAGNESIUM 1.9 mg/dL (1.8-2.4)
--- NOTE | 2019-06-26 17:38 | RAD ---
Exam: CT head INDICATION: Altered mental status TECHNIQUE: Sequential axial images through the head were obtained without the administration of IV contrast. Comparisons: 01/22/2019 FINDINGS: No focal parenchymal lesion or hemorrhage is identified. There is no midline shift or sulcal effacement. Patchy hypodensities in the periventricular white matter. No acute vascular territory infarction is identified. Duarte-white distinction is preserved. The ventricular system is within normal limits without compression hydrocephalus. The basal cisterns are well maintained. The visualized portions of the paranasal sinuses and mastoid air cells are well-pneumatized. No acute fractures. IMPRESSION: Mild small vessel ischemic change, technically age indeterminate without prior imaging. Exposure: One or more of the following in the visualized dose reduction techniques were utilized for this examination: 1. Automated exposure control 2. Adjustment of the MA and/or KV according to patient size Use of iterative of reconstructive technique Electronically signed by: Patricia Castaneda MD (06/26/2019 5:35 PM) [id number]
--- NOTE | 2019-06-26 17:55 | PHYS DOC ---
Past History Past Medical History: Anxiety, Arthritis, CHF, Constipation, COPD, Dementia, Depression, Diabetes, High Cholesterol, Hypertension, Renal Failure Additional Past Medical Histor: psychotic disorder with delusions; mood disorder; gait and mobility issues Past Medical History Unable to obtain secondary to altered mental status/dementia. Past Surgical History: No Surgical History, Other Additional Past Surgical Histo: unknown Past Surgical History Unable to obtain secondary to altered mental status/dementia Alcohol Use: None Drug Use: None Social History Unable to obtain secondary to altered mental status/dementia General Adult EDM: Chief Complaint: ALTERED MENTAL STATUS HPI: HPI: 83-year-old male with past medical history of dementia presents from [facility] via EMS with report of increased altered mental status and agitation. retirement concerned that patient may require Senior behavioral psych admission. Denies discussion with Dr. hannah regarding admission. Denying recent trauma. Denies dysuria. Denies fever or chills. Denies known sick contacts. History of present illness limited secondary to altered mental status/dementia. Review of Systems: Review of Systems: Neurologic: Reports altered mental status Review of systems limited secondary to altered mental status/dementia Allergies: Allergies: Allergies Coded Allergies Type Severity Reaction Last Updated Verified No Known Drug Allergies 01/22/19 No Physical Exam: PE: Constitutional: Well developed, well nourished, agitation, non-toxic appearance HENT: Normocephalic, atraumatic Eyes: Conjunctiva normal, no discharge Neck: Normal range of motion, no tenderness, supple Cardiovascular: Heart rate normal, regular rhythm Lungs & Thorax: Bilateral breath sounds clear to auscultation, no wheezing Abdomen: Soft, no tenderness Skin: Warm, dry, no erythema, no rash Extremities: No tenderness, ROM intact, no edema Neurologic: Alert and oriented X name only, normal motor function, normal sensory function, no focal deficits noted Psychologic: Affect agitation, judgment abnormal Current Patient Data: Labs: Laboratory Tests Test 06/26/19 16:38 White Blood Count 13.6 x10^3/uL (4.0-11.0) H Red Blood Count 3.94 x10^6/uL (4.30-5.70) L Hemoglobin 12.2 g/dL (13.0-17.5) L Hematocrit 36.0 % (39.0-53.0) L Mean Corpuscular Volume 91 fL (79-100) Mean Corpuscular Hemoglobin 31 pg (25-35) Mean Corpuscular Hemoglobin Concent 34 g/dL (31-37) Red Cell Distribution Width 12.0 % (11.5-14.5) Platelet Count 352 x10^3/uL (140-400) Neutrophils (%) (Auto) 66 % (31-73) Lymphocytes (%) (Auto) 24 % (24-48) Monocytes (%) (Auto) 7 % (0-9) Eosinophils (%) (Auto) 3 % (0-3) Basophils (%) (Auto) 0 % (0-3) Neutrophils # (Auto) 9.0 x10^3uL (1.8-7.7) H Lymphocytes # (Auto) 3.2 x10^3/uL (1.0-4.8) Monocytes # (Auto) 1.0 x10^3/uL (0.0-1.1) Eosinophils # (Auto) 0.3 x10^3/uL (0.0-0.7) Basophils # (Auto) 0.1 x10^3/uL (0.0-0.2) Prothrombin Time 9.5 SEC (9.4-11.4) Prothrombin Time INR 0.9 (0.9-1.1) Activated Partial Thromboplast Time 25 SEC (23-33) Lactic Acid Level 1.3 mmol/L (0.4-2.0) Magnesium Level 1.9 mg/dL (1.8-2.4) Ammonia 17 mcmol/L (11-34) Creatine Kinase 146 U/L (39-308) Creatine Kinase MB (Mass) 2.4 ng/mL (0.0-3.6) Creatine Kinase MB Relative Index 1.6 % (0-4) Troponin I Quantitative < 0.017 ng/mL (0-0.055) CU-Lpj-M-Type Natriuretic Peptide 248 pg/mL (0-449) Vital Signs: Vital Signs Date Time Temp Pulse Resp B/P (MAP) Pulse Ox O2 Delivery O2 Flow Rate FiO2 06/26/19 16:10 98.3 95 16 147/83 (104) 95 Room Air EKG: EKG: @1628 NSR 91bpm, NO ST elevation, QRS 122ms, QT/QTc 380/469ms, RBBB, LAFB Radiology/Procedures: Radiology/Procedures: PROCEDURE: CT HEAD WO CONTRAST Exam: CT head INDICATION: Altered mental status TECHNIQUE: Sequential axial images through the head were obtained without the administration of IV contrast. Comparisons: 01/22/2019 FINDINGS: No focal parenchymal lesion or hemorrhage is identified. There is no midline shift or sulcal effacement. Patchy hypodensities in the periventricular white matter. No acute vascular territory infarction is identified. Duarte-white distinction is preserved. The ventricular system is within normal limits without compression hydrocephalus. The basal cisterns are well maintained. The visualized portions of the paranasal sinuses and mastoid air cells are well-pneumatized. No acute fractures. IMPRESSION: Mild small vessel ischemic change, technically age indeterminate without prior imaging. Exposure: One or more of the following in the visualized dose reduction techniques were utilized for this examination: 1. Automated exposure control 2. Adjustment of the MA and/or KV according to patient size Use of iterative of reconstructive technique Electronically signed by: Patricia Castaneda MD (06/26/2019 5:35 PM) [id number] PROCEDURE: PORTABLE CHEST 1V PORTABLE CHEST 1V History: Altered mental status. Comparison: January 22, 2019. Findings: Low lung volumes. Patchy bibasilar opacities. No pleural effusion. No pneumothorax. Normal heart size. Impression: 1. Low lung volumes with patchy bibasilar opacities, likely atelectasis. Electronically signed by: Chintan Knight DO (06/26/2019 4:49 PM) [facility] Course & Med Decision Making: Course & Med Decision Making Pertinent Labs and Imaging studies reviewed. (See chart for details) 83-year-old male with past medical history of dementia presents from [facility] via EMS with report of increased altered mental status and agitation. retirement concerned that patient may require Senior behavioral psych admission. Denies discussion with Dr. hannah regarding admission. Denying recent trauma. EKG stable. Labs obtained and posted to chart. Hypo-natremia and increased creatinine appreciated. IV fluid hydration provided. CT head without acute process. Chest x-ray stable. Patient requiring admission for further evaluation and treatment. Discussed with Dr. Soni (hospitalist) who is in agreement with admission. Discussed findings and plan with patient, who acknowledges understanding and agreement. Dragon Disclaimer: Ari Disclaimer: This electronic medical record was generated, in whole or in part, using a voice recognition dictation system. Departure Departure: Impression: Primary Impression: Altered mental status Qualified Codes: R41.82 - Altered mental status, unspecified Additional Impressions: Dementia Qualified Codes: F03.91 - Unspecified dementia with behavioral disturbance Hyponatremia Acute renal insufficiency Disposition: ADMITTED INPATIENT Admitting Physician: Keren Soni Condition: STABLE Referrals: BARRY SHARMA (PCP) NIHSS - ED NIH Stroke Scale: NIH Stroke Scale Response (Comments) Value Level of Consciousness: 0 Alert/Responsive 0 LOC Questions: 1 Answers one correctly 1 LOC Commands: 0 Performs both tasks 0 Visual: 0 No visual loss 0 Facial Palsy: 0 Normal, symmetrical 0 Motor - Left Arm 0 No drift 0 Motor - Right Arm 0 No drift 0 Motor - Left Leg 0 No drift 0 Motor: Right Leg 0 No drift 0 Limb Ataxia: 0 Absent 0 Sensory: 0 No loss 0 Best Language: 0 Normal 0 Dysathria: 0 Normal 0 Extinction and Inattention: 0 Normal 0 Total 1 HINES,BEATRIS Pitts DO June 26, 2019 17:55
[2019-06-26 18:03] LABS: BARBITURATES NEG (NEG); BENZODIAZEPINES NEG (NEG); CANNABINOIDS NEG (NEG); COCAINE NEG (NEG); METHADONE NEG (NEG); OPIATES NEG (NEG); PHENCYCLIDINE NEG (NEG)
[2019-06-26 18:05] LABS: AMPHETAMINE/METHAMPHETAMINE NEG (NEG)
[2019-06-26 18:08] LABS: CALCIUM 8.7 mg/dL (8.5-10.1); CREATININE 1.5 mg/dL (0.7-1.3); GFR 44.7; POTASSIUM 4.6 mmol/L (3.5-5.1)
[2019-06-26 18:12] LABS: BILIRUBIN,URINE NEG (NEG); CLARITY,URINE CLEAR; COLOR,URINE YELLOW; GLUCOSE,URINE NEG (NEG); NITRITE,URINE NEG (NEG); UROBILINOGEN,URINE 0.2 mg/dL (0.2 mg/dL)
[2019-06-26 18:13] LABS: BACTERIA,URINE 0 /HPF (0-FEW); RBC,URINE 0 /HPF (0-2); SQUAMOUS EPITHELIAL CELL,UR OCC /LPF
[2019-06-26 18:15] LABS: ALBUMIN 3.5 g/dL (3.4-5.0); ALBUMIN/GLOBULIN RATIO 0.9 (1.0-1.7); TOTAL BILIRUBIN 0.2 mg/dL (0.2-1.0); TOTAL PROTEIN 7.4 g/dL (6.4-8.2)
[2019-06-26] MEDS ORDERED: DEXTROSE 50% 25 GM / 50ML DISP.SYRIN. IV PRN (18:30)
[2019-06-26 18:36] LABS: VAL ACID < 3 mcg/mL (50-100)
[2019-06-26] MEDS ORDERED: IV NORMAL SALINE 1,000ML 1,000 ML IV ONE (19:15)
[2019-06-26 20:38] VITALS: BP 121/89
[2019-06-26] MEDS ORDERED: CHOL400T36 PO (21:04)
[2019-06-26] MEDS ORDERED: hydrOXYzine PAMOATE 25 MG CAPSULE PO PRN (21:15)
[2019-06-26] MEDS ORDERED: ACETAMINOPHEN 325 MG TABLET PO PRN (21:15)
[2019-06-26] MEDS ORDERED: MAGNESIUM HYDROXIDE 2,400 MG/30 ML ORAL.SUSP. PO PRN (21:15)
[2019-06-26] MEDS: QUEtiapine 25 MG TABLET. PO SCH (22:24)
[2019-06-26] MEDS: hydrOXYzine PAMOATE 25 MG CAPSULE PO SCH (22:24)
[2019-06-26] MEDS: INSULIN GLARGINE SYRINGE. SQ SCH (22:26)
[2019-06-27 05:07] VITALS: BP 153/72
[2019-06-27 06:36] LABS: CALCIUM 8.5 mg/dL (8.5-10.1); CREATININE 1.3 mg/dL (0.7-1.3); GFR 52.7
[2019-06-27] MEDS: QUEtiapine 25 MG TABLET. PO SCH ×2 (08:12→13:37)
[2019-06-27] MEDS: hydrOXYzine PAMOATE 25 MG CAPSULE PO SCH ×2 (08:14→14:24)
[2019-06-27] MEDS: INSULIN GLARGINE SYRINGE. SQ SCH (08:24)
[2019-06-27] MEDS: INSULIN LISPRO 300 UNITS/3 ML VIAL. SQ SCH ×4 (08:25→12:21)
[2019-06-27] MEDS ORDERED: POTASSIUM CHLORIDE 10 MEQ TABLET.ER. PO SCH (09:00)
[2019-06-27] MEDS ORDERED: ASPIRIN CHEWABLE 81 MG TABLET. PO SCH (09:00)
[2019-06-27] MEDS ORDERED: CYANOCOBALAMIN (VITAMIN B-12) 1,000 MCG TABLET. PO SCH (09:00)
[2019-06-27] MEDS ORDERED: MULTIVITAMIN with MINERAL TABLET. PO SCH (09:00)
[2019-06-27] MEDS ORDERED: INSULIN GLARGINE SYRINGE. SQ SCH (09:00)
[2019-06-27] MEDS ORDERED: CETIRIZINE HCL 10 MG TABLET PO SCH (09:00)
[2019-06-27] MEDS ORDERED: METOPROLOL SUCC 24HR ER 50 MG TAB.ER.24H. PO SCH (09:00)
[2019-06-27] MEDS ORDERED: LACTOBACILLUS RHAMNOSUS GG 1 CAPSULE. PO SCH (09:00)
[2019-06-27 10:35] VITALS: BP 137/69
--- NOTE | 2019-06-27 13:29 | HP ---
ADMIT DATE: HISTORY OF PRESENT ILLNESS: The patient is an 83-year-old male patient[place] [facility] [place] was brought to the Emergency Room of [facility] via EMS with report of increased altered mental status and agitation. [facility] concerned that the patient may require Senior Behavioral psych admission. However, there is no arrangement with the [facility] before he was brought to the Emergency Room. The patient was extensively investigated in the Emergency Room and his lab work showed that he has hyponatremia. His serum sodium was 127. He does have also chronic kidney disease and therefore, the patient was admitted to [address] [place] [address] for medical stabilization. The patient himself was apparently lethargic yesterday and demented, does not give any useful information. He was oriented to his name only. PAST MEDICAL HISTORY: Significant for hypertension, hyperlipidemia, apparently has also chronic kidney disease, type 2 diabetes mellitus without complication, generalized muscle weakness, major depressive disorder, chronic heart failure, difficulty walking, cognitive communication, Alzheimer disease. PAST SURGICAL HISTORY: Unremarkable and unobtainable. 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 ALLERGIES: He has no known drug allergies. MEDICATIONS: He is on following medications: He is on loratadine 10 mg once a day, metoprolol succinate 50 mg once a day, valsartan 320 mg once a day, spironolactone 50 mg daily, aspirin 81 mg once a day, acetaminophen 650 mg every 4 hours, quetiapine fumarate 12.5 mg 3 times a day, hydroxyzine pamoate 50 mg three times a day, hydroxyzine pamoate 25 mg three times a day as needed. He is on potassium chloride 10 mEq once a day, furosemide 40 mg daily and he is on milk of magnesia 30 mL p.o. daily p.r.n. for constipation, lactobacillus rhamnosus 1 capsule daily. He is on NovoLog 16 units before meals and detemir insulin 35 units twice a day, cyanocobalamin 1000 mcg once a day, vitamin D3 50,000 International Units, he takes 2000 p.o. daily and multivitamin 1 tablet once a day. FAMILY HISTORY: Unobtainable. SOCIAL HISTORY: Some question whether or not his daughter is primary contact. REVIEW OF SYSTEMS: Unobtainable. PHYSICAL EXAMINATION: GENERAL: On arrival to the Emergency Room, he looked well and was clearly in no apparent respiratory distress. No pallor, jaundice, cyanosis or thyromegaly. No jugular venous distention. No lower limb edema. VITAL SIGNS: His heart rate was 95, blood pressure was 147/83, temperature was 98.3, respiratory rate was 16, and oxygen saturation was 95%. HEAD, EYES, EARS, NOSE AND THROAT: Showed he is normocephalic, atraumatic. NECK: Supple. HEART: Showed normal first and second heart sounds. No gallop, rub or murmur. CHEST: Clear to auscultation. No crepitation or rhonchi. ABDOMEN: Distended, soft, nontender. No guarding or rigidity. No organomegaly. All hernial orifices intact. Bowel sounds normal. NEUROLOGIC: He is demented, but without any obvious lateralizing sign. All his cranial nerves are intact. EXTREMITIES: He moves extremities without difficulty, ambulates without assistance or assistive devices. Examination of the extremities showed no clubbing, cyanosis or edema. LABORATORY DATA: Showed a white cell count of 13,600, hemoglobin 12, hematocrit 36, MCV 91, and platelet count 352,000. His chemistry showed his serum sodium was low at 127, potassium 4.6, chloride 92, bicarbonate 23, anion gap of 12, BUN 19, creatinine 1.5, estimated GFR was 44 mL per minute, his glucose 158, calcium was 8.7. Total bilirubin, AST, ALT, alkaline phosphatase were normal. His lactic acid was 1.3. Ammonia was 17, total protein was 7.4, albumin was 3.5. His prothrombin time, INR and aPTT are all normal. Urinalysis is essentially unremarkable. The urine was negative for protein, glucose, ketones, blood, nitrite and leukocyte esterase. No rbc's, 1-4 wbc's and no bacteria. His toxic screen was essentially negative. Has had a CT scan of the head, which basically showed the patient has no focal parenchymal lesion or hemorrhage identified. There is no midline shift or sulcal effacement. Patchy hypodensities in the periventricular white matter, no acute vascular territory infarction identified. Le white distinction is preserved. The ventricular system is within normal limits without compression hydrocephalus. The basal cisterns are well maintained. The visualized portion of the paranasal sinuses and mastoid air cells are well pneumatized. No acute fracture. His chest x-ray showed the patient has low lung volumes with patchy bibasilar opacities, no pleural effusion, no pneumothorax, normal heart size. ASSESSMENT AND PLAN: Basically the patient was admitted with altered mental status and according to the alf, agitation without contacting the [facility] for evaluation and possible admission. In the Emergency Room, he was found to have hyponatremia and was started on IV fluid. I held some of his medications including the Lasix, spironolactone, valsartan and we will obviously repeat all his lab work and decide on further management accordingly. We will also contact the [facility] for screening whether he is appropriate for admission to their unit. WINTER SALAZAR MD DR: YEHUDA/lilly JOB#: [id number] / [id number]
--- NOTE | 2019-06-27 13:32 | DS ---
DATE OF DISCHARGE: 06/27/2019 HOSPITAL COURSE: The patient is an 83-year-old male patient, a resident at [facility] [place], who was brought to the Emergency Room with altered mental status and increased agitation. The nursing staff there are concerned that he might require admission to [facility]; however, they did not go through the appropriate channel and never contacted the [facility] for acceptance whether he qualifies and he was evaluated in the Emergency Room, was found to have hyponatremia and acute on chronic kidney injuries and therefore he was admitted to [address] [place] [address] for medical stabilization. Apparently, he was screened for [facility] Unit and he did not qualify and not display any abnormal behavior. When I saw him this afternoon, he looked well and was clearly in no apparent distress. He denied any complaint. He clearly is demented, but was very pleasant and cooperative and compliant with care and medication. PHYSICAL EXAMINATION: GENERAL: When I saw him, he was sitting at the edge of the bed, eating his lunch. There was no pallor, jaundice, cyanosis or thyromegaly. No jugular venous distention. No limb edema. VITAL SIGNS: Her heart rate was 65, blood pressure was 137/69, temperature was 97.8, respiratory rate 20, and oxygen saturation was 96%. HEAD, EYES, EARS, NOSE AND THROAT: Showed normocephalic, atraumatic. NECK: Supple. HEART: Showed normal first and second heart sounds. No gallop or murmur. CHEST: Clear to auscultation. No crepitation or rhonchi. ABDOMEN: Distended, soft, nontender. NEUROLOGIC: He was awake, obviously alert, although clearly very confused and alert to himself only. However, all his cranial nerves are intact. He moves extremities without difficulty. He ambulates without assistance or assistive devices. His intake over the last 24 hours was 1980, no output was recorded. LABORATORY DATA: Showed his serum sodium has risen to 131, potassium 4, chloride 95, bicarbonate 25, anion gap of 11, BUN 16, creatinine was 1.3. His glucose 146, calcium was 8.5. Given that his hyponatremia resolved or improved, although not completely to within normal range and that he did not qualify for admission to [facility] a decision was made to discharge him back to [facility] [place] to continue on all his medication including acetaminophen 650 mg every 4 hours, aspirin 81 mg daily, cholecalciferol 2000 units once a day, cyanocobalamin 1000 mcg tablet once a day. I recommended that his Lasix to be taken as needed instead of regularly for weight gain of more than perhaps 3 pounds or more. Hydroxyzine pamoate 50 mg three times a day and hydroxyzine pamoate 25 mg three times a day as needed. He is on NovoLog insulin 16 units before meals and detemir insulin 35 units twice a day, lactobacillus rhamnosus 1 capsule daily, loratadine 10 mg once a day, magnesium hydroxide or Milk of Magnesia 30 mL daily p.r.n. for constipation, metoprolol succinate 50 mg once a day, multivitamin 1 tablet once a day, potassium chloride 10 mEq daily, quetiapine fumarate 12.5 mg 3 times a day, spironolactone 50 mg p.o. daily, and valsartan 320 mg once a day. FINAL DISCHARGE DIAGNOSES: 1. Altered mental status, resolved. 2. Hyponatremia, resolving. 3. [id number] kidney injury, resolved. The patient has a multitude of other medical problems including: A. Hypertension. B. Hyperlipidemia. C. Congestive heart failure, seems to be clinically compensated and type 2 diabetes mellitus, seems to be also reasonably controlled. D. He also has Alzheimer's disease with episode of psychosis. WINTER SALAZAR MD DR: YEHUDA/lilly JOB#: [id number] / [id number]
== END 2019-06-27 16:12 ==
LOC: ER 16:06 → INTOOBSV 18:25 → 1 SOUTH 18:25
PROVIDERS: ADMIT Internal Medicine; ATTEND Internal Medicine
DX: R41.82 Altered mental status, unspecified (principal); N17.9 Acute kidney failure, unspecified; E87.1 Hypo-osmolality and hyponatremia; F02.81 Dementia in other diseases classified elsewhere, unspecified severity, with behavioral disturbance; I13.0 Hypertensive heart and chronic kidney disease with heart failure and stage 1 through stage 4 chronic kidney disease, or unspecified chronic kidney disease; E11.22 Type 2 diabetes mellitus with diabetic chronic kidney disease; E78.00 Pure hypercholesterolemia, unspecified; E78.5 Hyperlipidemia, unspecified; G30.9 Alzheimer's disease, unspecified; I50.9 Heart failure, unspecified; M19.90 Unspecified osteoarthritis, unspecified site; J44.9 Chronic obstructive pulmonary disease, unspecified; F32.9 Major depressive disorder, single episode, unspecified; Z79.899 Other long term (current) drug therapy; Z79.4 Long term (current) use of insulin
CPT/HCPCS: 36415; 70450; 71045; 80048; 80053; 80164; 80307; 81001; 82140; 82533; 82553; 82947; 83605; 83735; 83880; 84443; 84484; 85025; 85610; 85730; 87086; 93005; 96360; 96361; 96372; 99285; G0378; G0379; J1815; Q0177; J7030; U0003-CS

== ENCOUNTER 2020-05-18 16:53 | Emergency (ER) | payer OTHER, MEDICAID ==
[~2020-05-18] VITALS: Ht 172.7 cm; Wt 103.4 kg
[~2020-05-18 16:53] MED LIST changes: +CHOL400T36 PO
--- NOTE | 2020-05-18 17:44 | EKG ---
[address] [address] Test Date: 2020-05-18 Test Time: 17:02:42 Pat Name: SHERMAN MARTINEZ Department: Room: Gender: M [employer] Manager: ABBIE : 1935 Requested By: BEATRIS GORMAN Order Number: [id number] Reading MD: Measurements Intervals [place] Rate: 91 P: 213 AR: 190 QRS: -68 QRSD: 126 T: 21 QT: 380 QTc: 469 Interpretive Statements SINUS RHYTHM ABNORMAL LEFT AXIS DEVIATION LEFT ANTERIOR FASCICULAR BLOCK RIGHT BUNDLE BRANCH BLOCK BIFASCICULAR BLOCK ABNORMAL ECG RI6.02 No previous ECG available for comparison
--- NOTE | 2020-05-18 17:48 | RAD ---
Chest, PA and Lateral: Technique: PA and lateral views of the chest were obtained. History: Hypoxia. Comparison: 06/26/2019. Findings: Mild cardiomegaly. Mild bibasilar lung airspace opacities. Moderate degenerative changes thoracic spi ne. IMPRESSION: Bibasilar linear airspace opacities likely atelectasis or infiltrates. Follow-up to resolution. Electronically signed by: Dheeraj oRsas MD (05/18/2020 5:46 PM) [id number]
[2020-05-18 18:02] VITALS: BP 152/79
--- NOTE | 2020-05-18 18:07 | PHYS DOC ---
Past History Past Medical History: Anxiety, Arthritis, CHF, Constipation, COPD, Dementia, Depression, Diabetes, High Cholesterol, Hypertension, Renal Failure Additional Past Medical Histor: psychotic disorder with delusions; mood disorder; gait and mobility issues (BEATRIS GORMAN APRN) Past Surgical History: No Surgical History, Other Additional Past Surgical Histo: unknown (BEATRIS GORMAN APRN) Alcohol Use: None Drug Use: None (BEATRIS GORMAN APRN) Adult General Chief Complaint Chief Complaint: SHORTNESS OF BREATH [facility] HPI Patient is a 84-year-old male presents emergency department without any physical complaints. Patient was brought here by EMS, EMS php consultant reports he was told by the shelter staff that the patient might have had a hypoxic episode today. The EMS php consultant did not notice any hypoxia or any concerning physical findings during his initial evaluation and transport to the emergency department here. The patient denies shortness of breath, denies chest pains, denies nasal or chest congestion, denies recent fever or chills. Patient denies any physical complaints or physical concerns. Patient is a resident of [facility]. Has no known drug allergies, has a standing diagnosis of chronic dyspnea, Alzheimer's disease, constipation, essential hypertension, hyperlipidemia, difficulty walking, mild cognitive impairment, acute kidney failure, heart failure, depressive mood disorder, psychotic disorder with delusions, cognitive communication deficit, muscle weakness, hypothyroidism, need for assistance with personal care, type 2 diabetes, and aphasia. (BEATRIS GORMAN APRN) Review of Systems Review of Systems 14 body systems of review of systems have been reviewed. See HPI for pertinent positives and negative responses, otherwise all other systems are negative, nonpertinent or noncontributory. (BEATRIS GORMAN APRN) Allergies Allergies Allergies Coded Allergies Type Severity Reaction Last Updated Verified No Known Drug Allergies 01/22/19 No (BEATRIS GORMAN APRN) Physical Exam Physical Exam Constitutional: Well developed, well nourished, no acute distress, non-toxic appearance. 84-year-old male in no apparent distress. HENT: Normocephalic, atraumatic, bilateral external ears normal, oropharynx mois t, no oral exudates, nose normal. Oropharynx moist, pink, no infectious process appreciated, no uvular edema, no laryngeal edema appreciated, no drooling, no trismus. No lymphadenopathy of the head or neck appreciated. Eyes: PERRLA, EOMI, conjunctiva normal, no discharge. Neck: Normal range of motion, no tenderness, supple, no stridor. No meningismus signs, no nuchal rigidity appreciated. Cardiovascular:Heart rate regular rhythm, no murmur, heart sounds S1-S2 to auscultation. Lungs & Thorax: Bilateral breath sounds clear to auscultation, all lung vazquez, no adventitious lung sounds appreciated Abdomen: Bowel sounds normal, soft, no tenderness, no masses, no pulsatile masses. Skin: Warm, dry, no erythema, no rash. Back: No tenderness, no CVA tenderness. Extremities: No tenderness, no cyanosis, no clubbing, ROM intact, no edema. Neurologic: Alert and oriented X 3, normal motor function, normal sensory function, no focal deficits noted. Psychologic: Affect normal, judgement normal, mood normal. (BEATRIS GORMAN APRN) Current Patient Data Vital Signs Vital Signs Date Time Temp Pulse Resp B/P (MAP) Pulse Ox O2 Delivery O2 Flow Rate FiO2 05/18/20 17:31 89 16 118/52 (74) 95 Room Air 05/18/20 16:58 98.2 (BEATRIS GORMAN APRN) EKG EKG EKG performed at 1702 by house respiratory therapy staff shows a normal sinus rhythm without ectopy, heart rate 91 bpm, NV interval 0.190, QTc interval 0.469, no acute STEMI, no ACS, no acute ischemia appreciated, EKG interpreted by ED attending physician Dr. Fields. (BEATRIS GORMAN APRN) Radiology/Procedures Radiology/Procedures PATIENT: SHERMAN MARTINEZ ACCOUNT: [id number] : 1935 LOCATION: ER AGE: 84 SEX: M EXAM STATUS: REG ER ORD. PHYSICIAN: BEATRIS GORMAN APRN REASON: HYPOXIA EVENT PROCEDURE: CHEST PA & LATERAL Chest, PA and Lateral: Technique: PA and lateral views of the chest were obtained. History: Hypoxia. Comparison: 06/26/2019. Findings: Mild cardiomegaly. Mild bibasilar lung airspace opacities. Moderate degenerative changes thoracic spine. IMPRESSION: Bibasilar linear airspace opacities likely atelectasis or infiltrates. Follow-up to resolution. Electronically signed by: Dheeraj Rosas MD (05/18/2020 5:46 PM) [id number] DICTATED AND SIGNED BY: DHEERAJ ROSAS MD DATE: 05/18/201740 CC: BEATRIS GORMAN APRN; BARRY SHARMA ~MTH0 0 (BEATRIS GORMAN APRN) Heart Score C/O Chest Pain: No Risk Factors: Risk Factors: DM, Current or recent (<one month) smoker, HTN, HLP, family history of CAD, obesity. Risk Scores: Risk Factors: DM, Current or recent (<one month) smoker, HTN, HLP, family history of CAD, obesity. (BETARIS GORMAN APRN) Course & Med Decision Making Course & Med Decision Making Pertinent Labs and Imaging studies reviewed. (See chart for details) 84-year-old male, vital signs reviewed, presents to the emergency department with a concern of hypoxic event at his shelter. Physical examination was unremarkable. Patient denied any shortness of breath or chest pain. Related to the shelter staff chief complaint and concerns, an EKG and a chest x-ray will be performed. The patient is not hypoxic, the patient is in no apparent distress, the patient does not not look toxic in appearance. EKG was negative for acute findings. The patient was walked down the hallway several times with the pulse oximeter attached, the patient's O2 sat did not drop below 95% on room air, the patient did not become short of breath nor did he appear hypoxic or toxic during this event. Chest x-ray was concerning for either atelectasis or possibly infiltrates. Related to the shelter's concerns, the patient will be treated with a Z-Oscar for an atypical pneumonia. Will have patient follow-up with primary care for o ngoing investigation of event at shelter. ED nurse gave nursing report to shelter nurse. Patient is waiting to be tr ansported back to his shelter, [facility] [place]. (BEATRIS GORMAN APRN) Dragon Disclaimer Dragon Disclaimer This electronic medical record was generated, in whole or in part, using a voice recognition dictation system. (ADAMOVICH,JOSHUA [employer]) Departure Departure: Impression: Primary Impression: Atypical pneumonia Disposition: HOME / SELF CARE / HOMELESS Condition: GOOD Referrals: BARRY SHARMA (PCP) Patient Instructions: Pneumonia, Adult Additional Instructions: Your evaluated in the emergency department today for a low O2 sat. He did not exhibit this in the emergency department. Your chest x-ray was concerning for a possible atypical type pneumonia, I am starting you on Zithromax, please have this reevaluated by your primary care doctor soon, your EKG was in the normal limits, I could not find any reason that would require you to be hospitalized or any reason that you would require immediate surgery. We both discussed you going back to your home. You feel comfortable with going home at this time. Please follow-up with your primary care doctor as needed. EMERGENCY DEPARTMENT GENERAL DISCHARGE INSTRUCTIONS Thank you for coming to [facility] (ED) today and trusting us with you care. We trust that you had a positivie experience in our Emergency Department. If you wish to speak to the department management, you may call the director at [phone]. YOUR FOLLOW UP INSTRUCTIONS ARE FOLLOWS: 1. Do you have a private Doctor? If you do not have a private doctor, please ask for a resource list of physicians or clinics that may be able to assist you with follow up care. 2. The Emergency Physician has interpreted your x-rays. The X-Ray specialist will also review them. If there is a change in the findings, you will be notified in 48 hours when at all possible. 3. A lab test or culture has been done, your results will be reviewed and you w ill be notified if you need a change in treatment. ADDITIONAL INSTRUCTIONS AND INFORMATION: 1. Your care today has been supervised by a physician who is specially trained in emergency care. Many problems require more than one evaluation for a complete diagnosis and treatment. We recommend that you schedule your follow up appointment as recommended to ensure complete treatment of you illness or injury. If you are unable to obtain follow up care and continue to have a problem, or if your condition worsens, we recommend that you return to the ED. 2. We are not able to safely determine your condition over the phone nor are we able to give sound medical advice over the phone. For these safety reasons, if you call for medical advice we will ask you to come to the ED for further evaluation. 3. If you have any questions regarding these discharge instructions please call the ED at [phone]. SAFETY INFORMATION: In the interest of safety, wellness, and injury prevention; we encourage you to wear your sealbelt, if you smoke; quite smoking, and we encourage family to use a protective helmet for bicycling and other sporting events that present an increased risk for head injury. IF YOUR SYMPTOMS WORSEN OR NEW SYMPTOMS DEVELOP, OR YOU HAVE CONCERNS ABOUT YOUR CONDITION; OR IF YOUR CONDITION WORSENS WHILE YOU ARE WAITING FOR YOUR FOLLOW UP APPOINTMENT; EITHER CONTACT YOUR PRIMARY CARE DOCTOR, THE PHYSICIAN WHOSE NAME AND NUMBER YOU WERE GIVEN, OR RETURN TO THE ED IMMEDIATELY. Scripts Azithromycin (AZITHROMYCIN TABLET) 250 Mg Tablet 1 PKG PO UD for LUNG INFECTION for 5 Days, #6 TAB 0 Refills 2 the first day followed by 1 for days 2-5 Prov: BEATRIS GORMAN APRN 05/18/20 Attending Signature Attending Signature I have participated in the care of this patient and I have reviewed and agree with all pertinent clinical information above including history, exam, and recommendations. (ZOLTAN FIELDS DO) BEATRIS GORMAN APRN May 18, 2020 18:06 ZOLTNA FIELDS DO May 19, 2020 06:40
[2020-05-18] MEDS ORDERED: AZIT250T6 PO (18:12)
== END 2020-05-18 18:20 | disposition home or self-care (01) ==
LOC: ER 16:53
DX: J18.9 Pneumonia, unspecified organism (principal); F41.9 Anxiety disorder, unspecified; M19.90 Unspecified osteoarthritis, unspecified site; J44.9 Chronic obstructive pulmonary disease, unspecified; F03.90 Unspecified dementia, unspecified severity, without behavioral disturbance, psychotic disturbance, mood disturbance, and anxiety; E78.00 Pure hypercholesterolemia, unspecified; I13.0 Hypertensive heart and chronic kidney disease with heart failure and stage 1 through stage 4 chronic kidney disease, or unspecified chronic kidney disease; E11.22 Type 2 diabetes mellitus with diabetic chronic kidney disease; N18.9 Chronic kidney disease, unspecified; I50.9 Heart failure, unspecified; E03.9 Hypothyroidism, unspecified
CPT/HCPCS: 71046; 93005; 99284